=== PATIENT | female | born 1995 | race Caucasian/White ===

== ENCOUNTER → 2016-12-27 | Outpatient (REF) | payer BC ==
[~2016-12-27] MED LIST: ACET500T37 PO; IBUP600T26 PO; ZONI100C2 PO
== END ==
LOC: M LAB REF 16:21
PROVIDERS: ATTEND Surgery
DX: N39.0 Urinary tract infection, site not specified (principal)

== ENCOUNTER → 2017-01-01 | Outpatient (CLI) | payer BC ==
[2017-01-03 14:18] LABS: CONTROL LINE INT CTR LINE PRESENT; HIV SCRN NEGATIVE (NEGATIVE); HIV SCRN1 NEGATIVE (NEGATIVE)
== END ==
LOC: M WUC 11:28
PROVIDERS: ATTEND Nurse Practitioner Women's Health
DX: Z11.3 Encounter for screening for infections with a predominantly sexual mode of transmission (principal)

== ENCOUNTER → 2017-01-10 | Outpatient (REF) | payer BC | LOC: M LAB REF 16:36 | PROVIDERS: ATTEND Physician Assistant | DX: J06.9 Acute upper respiratory infection, unspecified (principal) ==

== ENCOUNTER → 2017-05-16 | Outpatient (CLI) | payer BC ==
[~2017-05-16] MED LIST changes: +LIDOCAINE 1% MDV 20ML VIAL As Ordered ONE
--- NOTE | 2017-05-17 17:07 | REP ---
RIGHT SUBMANDIBULAR LYMPH NODE FINE NEEDLE ASPIRATION: The procedure was performed by Sunita PARISI under the direct supervision of Dr. Maya. CONSENT: The procedure with its potential risks and complications were discussed with the patient. These include but are not limited to bleeding, infection and damage to adjacent structures. Verbal and written consent were obtained from the patient. TIME OUT: A procedural time out was observed to confirm the correct patient, procedure and site, all within the room agreed. LOCALIZATION: The patient is supine. The target node was identified by ultrasound. A skin site was marked and the skin was prepped and draped in the usual sterile fashion. PROCEDURE: 9 mL of Xylocaine were administered to the area of interest, six 25- gauge needles were passed through the lymph node for fine needle samples to be obtained. Three of these samples were placed in Cytolyt and three of the samples were placed in flow cytometry tube. IMPRESSION: Ultrasound guided fine needle aspiration of the right submandibular lymph node yielding 6 samples. The patient tolerated the procedure well and there were no immediate complications. The patient was then discharged home. Reviewed by AILIN Patton 05/18/2017 02:35 P
== END ==
LOC: M RADPRO 12:19
PROVIDERS: ATTEND Surgery
DX: R59.9 Enlarged lymph nodes, unspecified (principal); F17.210 Nicotine dependence, cigarettes, uncomplicated; Z79.899 Other long term (current) drug therapy

== ENCOUNTER 2017-07-13 07:04 | Emergency (ER) | payer BC ==
[~2017-07-13] VITALS: Ht 152.4 cm; Wt 103.6 kg
[~2017-07-13 07:04] MED LIST changes: +ACET-683 PO; -ACET500T37 PO; +IBUP-1022 PO; -IBUP600T26 PO; -LIDOCAINE 1% MDV 20ML VIAL As Ordered ONE
[2017-07-13] MEDS ORDERED: METF500T13 PO (07:12)
[2017-07-13] MEDS ORDERED: PROAAER10 INH (07:12)
[2017-07-13] MEDS ORDERED: TOPA1TAB PO (07:12)
[2017-07-13] MEDS ORDERED: diphenhydrAMINE INJ 50MG/ML VIAL (J1200) IV STA (07:22)
[2017-07-13] MEDS ORDERED: NS 1,000 ML IV ONE (07:30)
[2017-07-13] MEDS ORDERED: METOCLOPRAMIDE INJ 10MG/2ML VIAL (J2765) IV ONE (07:30)
[2017-07-13] MEDS ORDERED: IPRATROPIUM 0.5MG/ALBUTEROL 2.5MG INH SOL UD 3ML (DUONEB)(J7620) NEB ONE (07:30)
[2017-07-13 07:59] LABS: BASO % 0.3 % (0.0-1.0); EOS # 0.4 K/mm3 (0.0-0.50); EOS % 2.2 % (0.0-3.0); LARGE UNSTAINED CELL # 0.1 K/mm3 (0.0-0.4); LARGE UNSTAINED CELL % 0.8 % (0.0-4.0); LYMPH % 18.2 % (24.0-44.0); MEAN CORPUSCULAR HEMOGLOBIN 26.8 pg (27.0-33.0); MEAN CORPUSCULAR HGB CONC 31.7 g/dl (32.0-36.5); MEAN CORPUSCULAR VOLUME 84.5 fl (80.0-96.0); MONO # 0.5 K/mm3 (0.0-0.8); MONO % 3.1 % (0.0-5.0); NEUTROPHILS % 75.4 % (36.0-66.0); PLATELET COUNT, AUTOMATED 395 k/mm3 (150-450); RED CELL DISTRIBUTION WIDTH 13.9 % (11.5-14.5); WHITE BLOOD COUNT 15.9 K/mm3 (4.0-10.0)
[2017-07-13 08:15] LABS: CONTROL LINE HCG INT CTR LINE PRESENT
[2017-07-13 08:22] LABS: ALBUMIN 3.6 GM/DL (3.2-5.2); ALBUMIN/GLOBULIN RATIO 0.92 (1.00-1.93); ALKALINE PHOSPHATASE 98 U/L (45-117); ALT/SGPT 31 U/L (12-78); ANION GAP 8 MEQ/L (8-16); AST/SGOT 12 U/L (15-37); BILIRUBIN,DIRECT < 0.1 MG/DL (0.0-0.2); BILIRUBIN,TOTAL 0.2 MG/DL (0.2-1.0); BLOOD UREA NITROGEN 10 MG/DL (7-18); CALCIUM LEVEL 9.4 MG/DL (8.5-10.1); CARBON DIOXIDE LEVEL 27 MEQ/L (21-32); CHLORIDE LEVEL 109 MEQ/L (98-107); CREATININE FOR GFR 0.59 MG/DL (0.55-1.02); GLOMERULAR FILTRATION RATE > 60.0 (>60); GLUCOSE, FASTING 97 MG/DL (70-105); POTASSIUM SERUM 4.4 MEQ/L (3.5-5.1); SODIUM LEVEL 144 MEQ/L (136-145); TOTAL PROTEIN 7.5 GM/DL (6.4-8.2)
[2017-07-13 08:30] LABS: METHADONE URINE NEGATIVE (NEGATIVE)
[2017-07-13 08:33] LABS: MICROSCOPIC INDICATED? NO (NO)
--- NOTE | 2017-07-13 08:38 | REP ---
Head CT without contrast: History: Altered mental status. Comparison study: August 13, 2015 CT findings: Bone window settings demonstrate an intact bony calvarium. There is no evidence of skull fracture or incidental bony calvarial lesion. The visualized paranasal sinuses appear clear. No intraorbital abnormality is seen. On soft tissue window setting images; the lateral, third, and fourth ventricles are normal in size and position. Sher-white differentiation pattern is normal above and below the tentorium. There are is no evidence of intracranial hemorrhage. No mass, edema, infarction, or midline shift is seen. No extra-axial fluid collection is appreciated. Impression: Negative noncontrast head CT. Signed by Pedrito Maya MD 07/13/2017 08:30 A
--- NOTE | 2017-07-13 09:14 | REP ---
CHEST, TWO VIEWS: There is no evidence of acute infiltrate. No pleural effusion is seen. The heart is normal in size. The mediastinal silhouette is unremarkable. The visualized osseous structures are intact. IMPRESSION: No acute pulmonary disease. Signed by Renzo Sher MD 07/13/2017 04:39 P
[2017-07-13] MEDS ORDERED: KETOROLAC 30 MG/ML VIAL (J1885) IV ONE (09:15)
[2017-07-13] MEDS ORDERED: REGL10TA6 PO (10:32)
[2017-07-13 10:42] VITALS: BP 120/69
== END 2017-07-13 10:43 | disposition home or self-care (01) ==
LOC: M ED 07:04
DX: R51 Headache (principal); R06.02 Shortness of breath; J45.909 Unspecified asthma, uncomplicated; F17.200 Nicotine dependence, unspecified, uncomplicated; Z79.899 Other long term (current) drug therapy
CPT/HCPCS: 70450; 71020; 80048; 80076; 80307; 81001; 82550; 82553; 84443; 84703; 85025; 94640; 96361; 96374; 96375; 99283; G0480; J1200; J1885; J2765

== ENCOUNTER → 2017-09-01 | Outpatient (REF) | payer BC ==
[~2017-09-01] MED LIST changes: +METF500T13 PO; +PROAAER10 INH; +REGL10TA6 PO; +TOPA1TAB PO
== END ==
LOC: M LAB REF 16:24
PROVIDERS: ATTEND Nurse Practitioner Women's Health
DX: Z11.3 Encounter for screening for infections with a predominantly sexual mode of transmission (principal)

== ENCOUNTER → 2018-06-08 | Outpatient (CLI) | payer BC ==
[2018-06-08 09:07] LABS: HCG, SERUM QUANTITATIVE < 1.0 MIU/ML
== END ==
LOC: M LAB 08:00
DX: N91.2 Amenorrhea, unspecified (principal)
CPT/HCPCS: 84702

== ENCOUNTER → 2018-06-22 | Outpatient (CLI) | payer BC ==
[~2018-06-22] MED LIST changes: -ACET-683 PO; -IBUP-1022 PO; +ISOVUE-370 76% 100ML VIAL (Q9967) As Ordered; -METF500T13 PO; -PROAAER10 INH; -REGL10TA6 PO; -TOPA1TAB PO; -ZONI100C2 PO
== END ==
LOC: M RADPRO 12:41
DX: N97.0 Female infertility associated with anovulation (principal)
CPT/HCPCS: 58340

== ENCOUNTER → 2018-07-15 | Outpatient (CLI) | payer BC ==
[2018-07-15 16:39] LABS: BASO # 0.1 10^3/uL (0.0-0.2); BASO % 0.4 % (0.0-1.0); EOS # 0.4 10^3/uL (0.0-0.50); HEMATOCRIT 41.2 % (36.0-47.0); HEMOGLOBIN 12.2 g/dl (12.0-15.5); IMMATURE GRANULOCYTE # 0.1 10^3/uL (0-0); IMMATURE GRANULOCYTE % 0.8 % (0-3.0); LYMPH # 3.6 10^3/uL (1.5-6.5); LYMPH % 24.8 % (24.0-44.0); MEAN CORPUSCULAR HEMOGLOBIN 25.2 pg (27.0-33.0); MEAN CORPUSCULAR HGB CONC 29.6 g/dl (32.0-36.5); MEAN CORPUSCULAR VOLUME 84.9 fl (80.0-96.0); MONO # 0.6 10^3/uL (0.0-0.8); MONO % 4.2 % (0.0-5.0); NEUTROPHILS # 9.6 10^3/uL (1.8-7.7); NEUTROPHILS % 66.8 % (36.0-66.0); PLATELET COUNT, AUTOMATED 458 10^3/uL (150-450); RED BLOOD COUNT 4.85 10^6/uL (4.00-5.40); RED CELL DISTRIBUTION WIDTH 13.4 % (11.5-14.5); WHITE BLOOD COUNT 14.3 10^3/uL (4.0-10.0)
[2018-07-15 17:09] LABS: ESTIMATED AVERAGE GLUCOSE 105 MG/DL (60-110); HEMOGLOBIN A1c 5.3 %
[2018-07-15 17:20] LABS: ALBUMIN 3.3 GM/DL (3.2-5.2); ALBUMIN/GLOBULIN RATIO 0.92 (1.00-1.93); ALKALINE PHOSPHATASE 95 U/L (45-117); ALT/SGPT 39 U/L (12-78); ANION GAP 6 MEQ/L (8-16); AST/SGOT 17 U/L (7-37); BILIRUBIN,TOTAL 0.3 MG/DL (0.2-1.0); BLOOD UREA NITROGEN 11 MG/DL (7-18); CALCIUM LEVEL 9.1 MG/DL (8.5-10.1); CARBON DIOXIDE LEVEL 29 MEQ/L (21-32); CHLORIDE LEVEL 107 MEQ/L (98-107); CHOLESTEROL LEVEL 189 MG/DL (<200); FREE T4 1.03 NG/DL (0.76-1.46); GLOMERULAR FILTRATION RATE > 60.0 (>60); GLUCOSE, FASTING 73 MG/DL (70-100); HDL CHOLESTEROL 35 MG/DL (>40); NON-HDL-C 154 MG/DL; POTASSIUM SERUM 4.7 MEQ/L (3.5-5.1); SODIUM LEVEL 142 MEQ/L (136-145); THYROID STIMULATING HORMONE 0.818 uIU/ML (0.358-3.740); TOTAL PROTEIN 6.9 GM/DL (6.4-8.2); TRIGLYCERIDES LEVEL 170 MG/DL (<150)
== END ==
LOC: M WUC 13:42
DX: E78.2 Mixed hyperlipidemia (principal); E11.65 Type 2 diabetes mellitus with hyperglycemia; E03.9 Hypothyroidism, unspecified
CPT/HCPCS: 84443

== ENCOUNTER 2018-11-07 23:06 | Emergency (ER) | payer BC ==
[2018-11-08] MEDS: KETOROLAC 30 MG/ML VIAL (J1885) IV (00:35)
[2018-11-08 00:47] LABS: HEMATOCRIT 41.1 % (36.0-47.0); HEMOGLOBIN 12.6 g/dl (12.0-15.5); MEAN CORPUSCULAR HEMOGLOBIN 25.2 pg (27.0-33.0); MEAN CORPUSCULAR HGB CONC 30.7 g/dl (32.0-36.5); MEAN CORPUSCULAR VOLUME 82.2 fl (80.0-96.0); PLATELET COUNT, AUTOMATED 412 10^3/uL (150-450); RED CELL DISTRIBUTION WIDTH 15.1 % (11.5-14.5); WHITE BLOOD COUNT 17.4 10^3/uL (4.0-10.0)
[2018-11-08 00:48] LABS: ADD MANUAL DIFFER YES; DIFF SLIDE NUMBER 72; POSITIVE DIFF POS FLAG
[2018-11-08 01:06] LABS: CONTROL LINE HCG INT CTR LINE PRESENT; HCG, SERUM QUALITATIVE NEGATIVE (NEGATIVE)
[2018-11-08 01:07] LABS: ANION GAP 8 MEQ/L (8-16); BLOOD UREA NITROGEN 13 MG/DL (7-18); CALCIUM LEVEL 8.6 MG/DL (8.5-10.1); CARBON DIOXIDE LEVEL 26 MEQ/L (21-32); CHLORIDE LEVEL 109 MEQ/L (98-107); CK-MB VALUE MASS < 1.0 NG/ML (<3.6); CPK CREATINE PHOSPHOKINASE 57 U/L (26-192); CREATININE FOR GFR 0.53 MG/DL (0.55-1.30); FREE T4 1.04 NG/DL (0.76-1.46); GLOMERULAR FILTRATION RATE > 60.0 (>60); GLUCOSE, FASTING 89 MG/DL (70-100); MB/CK RELATIVE INDEX 1.75 (< OR =4); POTASSIUM SERUM 4.2 MEQ/L (3.5-5.1); SODIUM LEVEL 143 MEQ/L (136-145); TROPONIN I < 0.02 NG/ML (< 0.10)
[2018-11-08 02:03] LABS: ATYPICAL LYMPH 2 % (0-5); EOSINOPHILS 3 % (0-5); LYMPHOCYTES 25 % (16-52); MONOCYTES 3 % (0-8); NEUTROPHILS 67 % (35-75); PLATELET ESTIMATE NORMAL (NORMAL)
[2018-11-08 02:04] LABS: ANISOCYTOSIS 1+
[2018-11-08 02:28] LABS: CONTROL LINE MONO INT CTR LINE PRESENT; MONO SCRN NEGATIVE (NEGATIVE)
== END 2018-11-08 03:18 | disposition home or self-care (01) ==
LOC: M ED 23:06
DX: R07.89 Other chest pain (principal); Z72.0 Tobacco use; Z82.49 Family history of ischemic heart disease and other diseases of the circulatory system; Z79.899 Other long term (current) drug therapy
CPT/HCPCS: J1885

== ENCOUNTER → 2019-02-12 | Outpatient (REF) | payer BC ==
[~2019-02-12] MED LIST changes: +ACET-683 PO; +IBUP-1022 PO; -ISOVUE-370 76% 100ML VIAL (Q9967) As Ordered; +METF500T13 PO; +NAPR-50 PO; +PROAAER10 INH; +REGL10TA6 PO; +TOPA1TAB PO; +ZONI100C2 PO
[2019-02-12 11:34] LABS: BASO # 0.1 10^3/uL (0.0-0.2); BASO % 0.4 % (0.0-1.0); EOS # 0.4 10^3/uL (0.0-0.50); EOS % 2.7 % (0.0-3.0); HEMATOCRIT 41.3 % (36.0-47.0); HEMOGLOBIN 12.4 g/dl (12.0-15.5); LYMPH # 3.7 10^3/uL (1.5-6.5); LYMPH % 28.7 % (24.0-44.0); MEAN CORPUSCULAR HEMOGLOBIN 25.5 pg (27.0-33.0); MEAN CORPUSCULAR VOLUME 84.8 fl (80.0-96.0); MONO # 0.6 10^3/uL (0.0-0.8); NEUTROPHILS % 62.6 % (36.0-66.0); PLATELET COUNT, AUTOMATED 415 10^3/uL (150-450); RED BLOOD COUNT 4.87 10^6/uL (4.00-5.40); WHITE BLOOD COUNT 12.9 10^3/uL (4.0-10.0)
[2019-02-12 11:59] LABS: ERYTHROCYTE SEDIMENTATION RATE 22 mm/hr (0-20)
[2019-02-12 12:29] LABS: ALBUMIN 3.5 GM/DL (3.2-5.2); ALT/SGPT 31 U/L (12-78); BILIRUBIN,TOTAL 0.3 MG/DL (0.2-1.0); BLOOD UREA NITROGEN 15 MG/DL (7-18); CALCIUM LEVEL 8.7 MG/DL (8.5-10.1); CARBON DIOXIDE LEVEL 24 MEQ/L (21-32); CHLORIDE LEVEL 110 MEQ/L (98-107); CREATININE FOR GFR 0.56 MG/DL (0.55-1.30); GLOMERULAR FILTRATION RATE > 60.0 (>60); GLUCOSE, FASTING 78 MG/DL (70-100); IMMUNOGLOBULIN E 95.6 IU/ML (<100); IMMUNOGLOBULIN G 856 MG/DL (681-1648); IMMUNOGLOBULIN M 98.5 MG/DL (40-230); LDH LACTATE DEHYDROGENASE 164 U/L (84-246); POTASSIUM SERUM 4.6 MEQ/L (3.5-5.1); RHEUMATOID FACTOR QUANT < 10.0 IU/ML (<15.0); SODIUM LEVEL 141 MEQ/L (136-145); TOTAL PROTEIN 6.7 GM/DL (6.4-8.2)
[2019-02-12 15:38] LABS: HIV 1&2 SCREEN CENTAUR NEGATIVE (NEGATIVE)
[2019-02-15 00:09] LABS: ANA (HEP2) Negative (.); CYCLIC CITRULLINATED PEPTIDE 5 units (0-19)
== END ==
LOC: M SFHCPLAZ 10:35
PROVIDERS: ATTEND Internal Medicine Infectious Disease
DX: R59.0 Localized enlarged lymph nodes (principal); D72.829 Elevated white blood cell count, unspecified

== ENCOUNTER → 2019-03-02 | Outpatient (CLI) | payer BC ==
[~2019-03-02] MED LIST changes: +ISOVUE-370 76% 100ML VIAL (Q9967) As Ordered ONE; -NAPR-50 PO; +NAPR-837 PO
--- NOTE | 2019-03-02 11:01 | REP ---
SOFT-TISSUE NECK CT STUDY WITH IV CONTRAST: HISTORY: Abnormal ultrasound. Cervical adenopathy. Recurrent infections. Comparison CT study is from April 16, 2015. Comparison sonography February 20, 2019. CT CONTRAST DOSE: 75 mL of intravenous Isovue 370. CT FINDINGS: No intraorbital or intracranial abnormality is seen. The visualized paranasal sinuses are clear. No bony destructive lesion is appreciated. The lung apices are clear. Thyroid lobes are normal and symmetric. Submandibular and parotid glands are symmetric and unremarkable. There are shoddy anterior and posterior cervical lymph nodes present bilaterally. The largest on the left may is an anterior node at the angle of the mandible measuring 9 mm in short axis dimension. This is slightly smaller than on the [address] The largest lymph node on the right is in a similar location and measures 9 mm in short axis dimension. It too is a little smaller than the prior study. No cyst or mass is seen. No definitely enlarged lymph node. IMPRESSION: Scattered normal-sized lymph nodes noted bilaterally. Slightly smaller than on April 16, 2015. No neck mass or definite adenopathy seen. Electronically Signed by Pedrito Maya MD 03/02/2019 07:58 P
== END ==
LOC: M RAD 08:36
PROVIDERS: ATTEND Internal Medicine Infectious Disease
DX: R59.0 Localized enlarged lymph nodes (principal)
CPT/HCPCS: 70491; Q9967

== ENCOUNTER 2019-03-27 19:35 | Emergency (ER) | payer BC ==
[~2019-03-27] VITALS: Ht 152.4 cm; Wt 107.3 kg
[~2019-03-27 19:35] MED LIST changes: -ISOVUE-370 76% 100ML VIAL (Q9967) As Ordered ONE
--- NOTE | 2019-03-27 20:01 | ECGEPIP ---
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
[2019-03-27 20:15] LABS: BASO # 0.1 10^3/uL (0.0-0.2); BASO % 0.3 % (0.0-1.0); EOS # 0.5 10^3/uL (0.0-0.50); EOS % 2.7 % (0.0-3.0); HEMATOCRIT 38.1 % (36.0-47.0); HEMOGLOBIN 11.8 g/dl (12.0-15.5); LYMPH % 23.8 % (24.0-44.0); MEAN CORPUSCULAR HEMOGLOBIN 25.5 pg (27.0-33.0); MEAN CORPUSCULAR VOLUME 82.5 fl (80.0-96.0); MONO # 0.5 10^3/uL (0.0-0.8); NEUTROPHILS # 11.6 10^3/uL (1.8-7.7); NEUTROPHILS % 69.4 % (36.0-66.0); PLATELET COUNT, AUTOMATED 383 10^3/uL (150-450); RED BLOOD COUNT 4.62 10^6/uL (4.00-5.40); WHITE BLOOD COUNT 16.7 10^3/uL (4.0-10.0)
[2019-03-27 20:48] LABS: BLOOD UREA NITROGEN 14 MG/DL (7-18); CALCIUM LEVEL 8.8 MG/DL (8.5-10.1); CARBON DIOXIDE LEVEL 28 MEQ/L (21-32); CHLORIDE LEVEL 108 MEQ/L (98-107); CK-MB VALUE MASS < 1.0 NG/ML (<3.6); CPK CREATINE PHOSPHOKINASE 66 U/L (26-192); CREATININE FOR GFR 0.66 MG/DL (0.55-1.30); FREE T4 1.05 NG/DL (0.76-1.46); GLOMERULAR FILTRATION RATE > 60.0 (>60); GLUCOSE, FASTING 117 MG/DL (70-100); MB/CK RELATIVE INDEX 1.52 (< OR =4); POTASSIUM SERUM 4.1 MEQ/L (3.5-5.1); SODIUM LEVEL 141 MEQ/L (136-145); TROPONIN I < 0.02 NG/ML (< 0.10)
[2019-03-27 20:50] LABS: HCG, SERUM QUALITATIVE NEGATIVE (NEGATIVE)
[2019-03-27] MEDS ORDERED: methylPREDNISolone INJ 125 MG/2 ML VIAL (J2930) IV ONE (22:00)
[2019-03-27] MEDS ORDERED: AZITHROMYCIN 250 MG TAB PO ONE (22:00)
[2019-03-27] MEDS ORDERED: ZITH500T PO (22:03)
[2019-03-27] MEDS ORDERED: MEDR4PAK PO (22:03)
[2019-03-27] MEDS ORDERED: ALBU17IN2 INH (22:03)
[2019-03-27 22:21] VITALS: BP 139/65
--- NOTE | 2019-03-28 00:40 | REP ---
Clinical: Acute chest pain . Comparison: 11/08/2018 . Technique: PA and lateral. Findings: The mediastinum and cardiac silhouette are normal. The lung pierson are clear and without acute consolidation, effusion, or pneumothorax. The skeletal structures are intact and normal. Impression: 1. No acute cardiopulmonary process. Electronically Signed by Chito Baptiste MD 03/28/2019 12:31 A
== END 2019-03-27 22:22 | disposition home or self-care (01) ==
LOC: M ED 19:36
DX: J45.998 Other asthma (principal); E28.2 Polycystic ovarian syndrome; Z79.84 Long term (current) use of oral hypoglycemic drugs
CPT/HCPCS: 71046; 80048; 82550; 82553; 84439; 84443; 84484; 84703; 85025; 85379; 93005; 96374; 99284; J2930

== ENCOUNTER → 2019-04-29 | Outpatient (CLI) | payer BC ==
[~2019-04-29] MED LIST changes: +ALBU17IN2 INH; +CEFU50TA PO; +MEDR4PAK PO; +VITA500045 PO; +ZITH500T PO
[2019-04-29 17:56] LABS: BASO # 0.1 10^3/uL (0.0-0.2); BASO % 0.4 % (0.0-1.0); EOS # 0.3 10^3/uL (0.0-0.50); EOS % 2.4 % (0.0-3.0); HEMATOCRIT 40.8 % (36.0-47.0); HEMOGLOBIN 12.3 g/dl (12.0-15.5); LYMPH # 4.4 10^3/uL (1.5-6.5); LYMPH % 31.1 % (24.0-44.0); MEAN CORPUSCULAR HEMOGLOBIN 25.6 pg (27.0-33.0); MEAN CORPUSCULAR HGB CONC 30.1 g/dl (32.0-36.5); MEAN CORPUSCULAR VOLUME 84.8 fl (80.0-96.0); MONO # 0.6 10^3/uL (0.0-0.8); MONO % 4.3 % (0.0-5.0); NEUTROPHILS # 8.7 10^3/uL (1.8-7.7); NEUTROPHILS % 61.3 % (36.0-66.0); PLATELET COUNT, AUTOMATED 415 10^3/uL (150-450); RED BLOOD COUNT 4.81 10^6/uL (4.00-5.40); WHITE BLOOD COUNT 14.1 10^3/uL (4.0-10.0)
[2019-04-29 18:04] LABS: ALBUMIN 3.4 GM/DL (3.2-5.2); ALT/SGPT 36 U/L (12-78); BILIRUBIN,TOTAL 0.1 MG/DL (0.2-1.0); BLOOD UREA NITROGEN 12 MG/DL (7-18); CALCIUM LEVEL 8.9 MG/DL (8.5-10.1); CARBON DIOXIDE LEVEL 28 MEQ/L (21-32); CHLORIDE LEVEL 107 MEQ/L (98-107); CHOLESTEROL LEVEL 167 MG/DL (<200); CREATININE FOR GFR 0.69 MG/DL (0.55-1.30); GLOMERULAR FILTRATION RATE > 60.0 (>60); GLUCOSE, FASTING 90 MG/DL (70-100); HDL CHOLESTEROL 33 MG/DL (>40); LDL CHOLESTEROL 113 MG/DL (<100); NON-HDL-C 134 MG/DL; POTASSIUM SERUM 4.8 MEQ/L (3.5-5.1); SODIUM LEVEL 140 MEQ/L (136-145); TOTAL PROTEIN 6.5 GM/DL (6.4-8.2); TRIGLYCERIDES LEVEL 107 MG/DL (<150)
[2019-04-29 18:12] LABS: HEMOGLOBIN A1c 5.8 %
[2019-04-30 11:09] LABS: TOTAL 25(OH) VITAMIN D 18.3 NG/ML (30.0-100.0)
== END ==
LOC: M WUC 09:59
PROVIDERS: ATTEND Nurse Practitioner Adult Health
DX: D72.829 Elevated white blood cell count, unspecified (principal); R10.811 Right upper quadrant abdominal tenderness; F41.9 Anxiety disorder, unspecified; E28.2 Polycystic ovarian syndrome; E55.9 Vitamin D deficiency, unspecified; Z79.899 Other long term (current) drug therapy; E78.00 Pure hypercholesterolemia, unspecified

== ENCOUNTER 2019-05-31 22:39 | Emergency (ER) | payer BC ==
[~2019-05-31] VITALS: Ht 152.4 cm; Wt 106.1 kg
[2019-05-31 22:40] VITALS: BP 135/94
[2019-05-31] MEDS ORDERED: KEFL500C17 PO (23:44)
[2019-05-31] MEDS ORDERED: CEPHALEXIN 500 MG CAP PO ONE (23:45)
== END 2019-06-01 00:14 | disposition home or self-care (01) ==
LOC: M ED 22:39
DX: H60.01 Abscess of right external ear (principal); Z72.0 Tobacco use; Z79.899 Other long term (current) drug therapy

== ENCOUNTER → 2019-08-01 | Outpatient (CLI) | payer BC ==
[~2019-08-01] MED LIST changes: -ALBU17IN2 INH; +KEFL500C17 PO; +PROV108A INH
--- NOTE | 2019-08-01 11:04 | REP ---
Chest x-ray: Two views. History: Shortness of breath . Comparison study: March 27, 2019 . Findings: The lungs are well inflated and free of infiltrate. The pleural angles are sharp. The heart size is normal. Pulmonary vasculature is not increased. No significant bony abnormality is seen. Impression: Negative chest x-ray. Electronically Signed by Pedrito Maya MD 08/01/2019 10:56 A
[2019-08-01 12:37] LABS: BASO # 0.1 10^3/uL (0.0-0.2); BASO % 0.4 % (0.0-1.0); EOS # 0.4 10^3/uL (0.0-0.5); EOS % 2.9 % (0.0-3.0); HEMATOCRIT 39.4 % (36.0-47.0); LYMPH # 4.4 10^3/uL (1.5-5.0); LYMPH % 31.9 % (24.0-44.0); MEAN CORPUSCULAR HGB CONC 30.5 g/dl (32.0-36.5); MEAN CORPUSCULAR VOLUME 85.3 fl (80.0-96.0); MONO # 0.7 10^3/uL (0.0-0.8); MONO % 4.8 % (0.0-5.0); NEUTROPHILS # 8.1 10^3/uL (1.5-8.5); NEUTROPHILS % 59.4 % (36.0-66.0); PLATELET COUNT, AUTOMATED 409 10^3/uL (150-450); RED BLOOD COUNT 4.62 10^6/uL (4.00-5.40); WHITE BLOOD COUNT 13.7 10^3/uL (4.0-10.0)
[2019-08-01 12:53] LABS: ALT/SGPT 36 U/L (12-78); BILIRUBIN,TOTAL 0.3 MG/DL (0.2-1.0); BLOOD UREA NITROGEN 15 MG/DL (7-18); CALCIUM LEVEL 8.7 MG/DL (8.5-10.1); CARBON DIOXIDE LEVEL 26 MEQ/L (21-32); CHLORIDE LEVEL 109 MEQ/L (98-107); CHOLESTEROL LEVEL 187 MG/DL (<200); CREATININE FOR GFR 0.66 MG/DL (0.55-1.30); GLOMERULAR FILTRATION RATE > 60.0 (>60); GLUCOSE, FASTING 81 MG/DL (70-100); HDL CHOLESTEROL 34 MG/DL (>40); LDL CHOLESTEROL 131 MG/DL (<100); NON-HDL-C 153 MG/DL; POTASSIUM SERUM 4.6 MEQ/L (3.5-5.1); SODIUM LEVEL 143 MEQ/L (136-145); TOTAL 25(OH) VITAMIN D 25.5 NG/ML (30.0-100.0); TOTAL PROTEIN 6.2 GM/DL (6.4-8.2); TRIGLYCERIDES LEVEL 109 MG/DL (<150)
[2019-08-01 12:55] LABS: HEMOGLOBIN A1c 5.7 %
== END ==
LOC: M WUC 08:46
PROVIDERS: ATTEND Nurse Practitioner Adult Health
DX: R06.02 Shortness of breath (principal)

== ENCOUNTER → 2019-09-24 | Outpatient (REF) | payer BC ==
[2019-09-24 20:35] LABS: CHLAMYDIA DNA AMPLIFICATION NEGATIVE (NEGATIVE); GC DNA AMPLIFICATION NEGATIVE (NEGATIVE)
== END ==
LOC: M LAB REF 17:46
PROVIDERS: ATTEND Obstetrics & Gynecology
DX: Z12.4 Encounter for screening for malignant neoplasm of cervix (principal)
CPT/HCPCS: 87661; G0123

== ENCOUNTER → 2019-12-27 | Outpatient (REF) | payer BC ==
[~2019-12-27] MED LIST changes: +ZONI100C17 PO; -ZONI100C2 PO
[2019-12-27 12:17] LABS: INFLUENZA A AMPLIFICATION NEGATIVE (NEGATIVE); INFLUENZA B AMPLIFICATION NEGATIVE (NEGATIVE)
== END ==
LOC: M LAB REF 11:21
PROVIDERS: ATTEND Physician Assistant
DX: J11.1 Influenza due to unidentified influenza virus with other respiratory manifestations (principal)

== ENCOUNTER → 2020-05-13 | Outpatient (CLI) | payer OTHER ==
[~2020-05-13] MED LIST changes: +METF-839 PO; +SING10TA32 PO; +SYMB16INH INH
--- NOTE | 2020-05-13 14:22 | PFTRPT ---
Height: 60.00 Inches Weight: 220.00 Lbs BSA: 1.94 Diagnosis: R06.00 DATE OF PROCEDURE: 05/13/2020 ORDERED BY: CHARLOTTE Hatfield Spirometry: Pre and post bronchodilator study of excellent technical quality. Forced vital capacity normal. FEV1 is out of proportion. Obstructive index is, therefore, reduced. Flow Volume Loop: Expiratory limb of the flow volume loop suggests airflow limitation. Favorable bronchodilator response identified. Lung Volumes: Total lung capacity borderline elevated. Residual volume does suggest a degree of air trapping. Diffusing Capacity: Diffusing capacity normal. Hemoglobin: Hemoglobin acceptable at 12.4. Airway Mechanics: Airway resistance elevated with concomitant decrease in airway conductance. IMPRESSION: Mild obstructive ventilatory impairment with bronchodilator response. Underlying air trapping. Please correlate clinically. MTDD
== END ==
LOC: M CARPUL 13:41
PROVIDERS: ATTEND Physician Assistant
DX: R06.00 Dyspnea, unspecified (principal)

== ENCOUNTER → 2020-05-16 | Outpatient (CLI) | payer OTHER ==
--- NOTE | 2020-05-16 08:48 | REP ---
Chest x-ray: Two views. History: Dyspnea . Comparison study: August 01, 2019 . Findings: The lungs are well inflated and free of infiltrate. The pleural angles are sharp. The heart size is normal. Pulmonary vasculature is not increased. No significant bony abnormality is seen. Impression: Negative chest x-ray. Electronically Signed by Pedrito Maya MD 05/16/2020 08:40 A
== END ==
LOC: M RAD 08:20
PROVIDERS: ATTEND Physician Assistant
DX: R06.00 Dyspnea, unspecified (principal)

== ENCOUNTER → 2020-06-30 | Outpatient (CLI) | payer OTHER ==
[~2020-06-30] MED LIST changes: +E-Z-GAS II EFFERVESCENT PACKET (SODIUM BICARB./CITRIC ACID/SIMETHICONE) As Ordered ONE; +E-Z-HD 98% w/w 340GM SUSP BTL As Ordered ONE; +E-Z-PAQUE 96% w/w SUSP 176GM BTL As Ordered ONE
--- NOTE | 2020-08-15 07:19 | REP ---
ESOPHAGRAM STUDY: This procedure was performed by AILIN Jenkins under the direct supervision of Dr. Sher. Images were reviewed with Dr. Sher prior to dictation. FINDINGS: A single PA chest x-ray is submitted as a grounding engineer film. The superior mediastinal structures are midline. The heart size is within normal limits. The lungs are clear. Liquid barium and gas-producing granules were given in the erect position as well as liquid barium in the prone oblique position in order to perform a double contrast esophagram examination. The oral and pharyngeal stages of deglutition were unremarkable. Esophageal transport is prompt and efficient and there is no evidence of esophagitis, stricture, mucosal ring or hiatal hernia. There was no gastroesophageal reflux demonstrated during this exam. IMPRESSION: Unremarkable esophagram. 0.2 minutes of fluoroscopy time was utilized for this procedure. [facility]
== END ==
LOC: M RAD 08:00
PROVIDERS: ATTEND Otolaryngology
DX: J32.4 Chronic pansinusitis (principal); K21.9 Gastro-esophageal reflux disease without esophagitis

== ENCOUNTER 2020-07-23 19:30 | Emergency (ER) | payer OTHER ==
[~2020-07-23] VITALS: Ht 152.4 cm; Wt 102.4 kg
[~2020-07-23 19:30] MED LIST changes: -E-Z-GAS II EFFERVESCENT PACKET (SODIUM BICARB./CITRIC ACID/SIMETHICONE) As Ordered ONE; -E-Z-HD 98% w/w 340GM SUSP BTL As Ordered ONE; -E-Z-PAQUE 96% w/w SUSP 176GM BTL As Ordered ONE
[2020-07-23 19:31] VITALS: BP 135/76
[2020-07-23] MEDS ORDERED: METOCLOPRAMIDE INJ 10MG/2ML VIAL (J2765 PER 1) IV ONE (20:45)
[2020-07-23] MEDS ORDERED: DICYCLOMINE 10 MG CAP PO ONE (20:45)
[2020-07-23] MEDS ORDERED: KETOROLAC 30 MG/ML 1ML VIAL IV ONE (20:45)
[2020-07-23] MEDS ORDERED: NS 1,000 ML IV ONE (20:45)
[2020-07-23 21:00] LABS: BASO # 0.1 10^3/uL (0.0-0.2); BASO % 0.4 % (0.0-1.0); EOS # 0.4 10^3/uL (0.0-0.5); EOS % 2.3 % (0.0-3.0); HEMATOCRIT 44.1 % (36.0-47.0); HEMOGLOBIN 13.5 g/dl (12.0-15.5); LYMPH # 4.3 10^3/uL (1.5-5.0); LYMPH % 25.9 % (24.0-44.0); MEAN CORPUSCULAR HEMOGLOBIN 25.9 pg (27.0-33.0); MEAN CORPUSCULAR HGB CONC 30.6 g/dl (32.0-36.5); MEAN CORPUSCULAR VOLUME 84.5 fl (80.0-96.0); MONO # 0.6 10^3/uL (0.0-0.8); MONO % 3.5 % (0.0-5.0); NEUTROPHILS # 11.1 10^3/uL (1.5-8.5); NEUTROPHILS % 67.6 % (36.0-66.0); PLATELET COUNT, AUTOMATED 398 10^3/uL (150-450); RED BLOOD COUNT 5.22 10^6/uL (4.00-5.40); WHITE BLOOD COUNT 16.4 10^3/uL (4.0-10.0)
[2020-07-23 21:31] LABS: HCG, SERUM QUALITATIVE NEGATIVE (NEGATIVE)
[2020-07-23 21:40] LABS: ALBUMIN 3.6 GM/DL (3.2-5.2); ALT/SGPT 47 U/L (12-78); BILIRUBIN,DIRECT < 0.1 MG/DL (0.0-0.2); BILIRUBIN,TOTAL 0.2 MG/DL (0.2-1.0); BLOOD UREA NITROGEN 12 MG/DL (7-18); CALCIUM LEVEL 9.5 MG/DL (8.5-10.1); CARBON DIOXIDE LEVEL 29 MEQ/L (21-32); CHLORIDE LEVEL 107 MEQ/L (98-107); CREATININE FOR GFR 0.72 MG/DL (0.55-1.30); GLOMERULAR FILTRATION RATE > 60.0 (>60); GLUCOSE, FASTING 112 MG/DL (70-100); LIPASE 158 U/L (73-393); POTASSIUM SERUM 4.4 MEQ/L (3.5-5.1); SODIUM LEVEL 141 MEQ/L (136-145); TOTAL PROTEIN 7.2 GM/DL (6.4-8.2)
== END 2020-07-23 21:43 | disposition left against medical advice (07) ==
LOC: M ED 19:30
DX: D72.829 Elevated white blood cell count, unspecified (principal); R51 Headache; R10.9 Unspecified abdominal pain; J45.909 Unspecified asthma, uncomplicated; E28.2 Polycystic ovarian syndrome; Z79.899 Other long term (current) drug therapy
CPT/HCPCS: 80048; 80076; 81001; 83690; 84703; 85025; 96374; 96375; 99283; J1885; J2765

== ENCOUNTER → 2020-08-15 | Outpatient (CLI) | payer OTHER ==
--- NOTE | 2020-08-22 10:02 | REP ---
PELVIC ULTRASOUND HISTORY: Polycystic ovarian syndrome, excessive menstruation. TECHNIQUE: Real-time sonographic evaluation of the pelvis is performed utilizing transabdominal technique. FINDINGS: Bladder measures 8.8 x 5.2 x 2.8 cm for a total volume of 67 mL. Uterus measures 6.5 x 3.1 x 4.4 cm. Endometrial thickness is 6 mm with no endometrial fluid collection. Ovaries are normal in size and echotexture. Right ovary measuring 3.5 x 3.0 x 4.2 cm and left ovary 3.4 x 2.2 x 2.8 cm. There is no evidence of ovarian torsion with duplex Doppler evaluation. There is no adnexal mass. There is no free fluid. IMPRESSION: Essentially unremarkable pelvic ultrasound. MTDD
== END ==
LOC: M WHC 08:28
PROVIDERS: ATTEND Nurse Practitioner Adult Health
DX: E28.2 Polycystic ovarian syndrome (principal); N92.0 Excessive and frequent menstruation with regular cycle

== ENCOUNTER → 2020-08-25 | Outpatient (CLI) | payer OTHER ==
[2020-08-25 14:37] LABS: HEMATOCRIT 45.5 % (36.0-47.0); HEMOGLOBIN 13.5 g/dl (12.0-15.5); MEAN CORPUSCULAR HEMOGLOBIN 26.1 pg (27.0-33.0); MEAN CORPUSCULAR HGB CONC 29.7 g/dl (32.0-36.5); MEAN CORPUSCULAR VOLUME 87.8 fl (80.0-96.0); PLATELET COUNT, AUTOMATED 450 10^3/uL (150-450); RED BLOOD COUNT 5.18 10^6/uL (4.00-5.40); WHITE BLOOD COUNT 15.7 10^3/uL (4.0-10.0)
[2020-08-25 15:02] LABS: ATYPICAL LYMPH 6 % (0-5); EOSINOPHILS 3 % (0-3); LYMPHOCYTES 24 % (16-44); MONOCYTES 4 % (0-5); NEUTROPHILS 61 % (28-66); PLATELET ESTIMATE NORMAL (NORMAL)
[2020-08-25 15:11] LABS: ALBUMIN 3.5 GM/DL (3.2-5.2); ALT/SGPT 36 U/L (12-78); BILIRUBIN,TOTAL < 0.1 MG/DL (0.2-1.0); BLOOD UREA NITROGEN 13 MG/DL (7-18); CALCIUM LEVEL 9.4 MG/DL (8.5-10.1); CARBON DIOXIDE LEVEL 28 MEQ/L (21-32); CHLORIDE LEVEL 107 MEQ/L (98-107); CHOLESTEROL LEVEL 196 MG/DL (<200); CREATININE FOR GFR 0.57 MG/DL (0.55-1.30); FERRITIN 31 NG/ML (8-252); GLOMERULAR FILTRATION RATE > 60.0 (>60); GLUCOSE, FASTING 85 MG/DL (70-100); HDL CHOLESTEROL 40 MG/DL (>40); IRON (FE) 29 UG/DL (50-170); LDL CHOLESTEROL 126 MG/DL (<100); NON-HDL-C 156 MG/DL; PERCENT SATURATION 8.6 % (13.2-45.0); POTASSIUM SERUM 4.7 MEQ/L (3.5-5.1); SODIUM LEVEL 139 MEQ/L (136-145); TOTAL IRON BINDING CAPACITY 336 UG/DL (250-450); TOTAL PROTEIN 7.1 GM/DL (6.4-8.2); TRIGLYCERIDES LEVEL 148 MG/DL (<150)
[2020-08-25 15:45] LABS: HEMOGLOBIN A1c 5.3 %
== END ==
LOC: M WUC 09:58
PROVIDERS: ATTEND Nurse Practitioner Adult Health
DX: D72.829 Elevated white blood cell count, unspecified (principal); E78.00 Pure hypercholesterolemia, unspecified; N92.0 Excessive and frequent menstruation with regular cycle; K21.00 Gastro-esophageal reflux disease with esophagitis, without bleeding; E28.2 Polycystic ovarian syndrome; F41.9 Anxiety disorder, unspecified; Z79.899 Other long term (current) drug therapy

== ENCOUNTER → 2020-11-26 | Outpatient (REF) | payer OTHER | LOC: M LAB 23:28 | PROVIDERS: ATTEND Physician Assistant | DX: Z11.59 Encounter for screening for other viral diseases (principal) ==

== ENCOUNTER → 2021-03-05 | Outpatient (CLI) | payer OTHER ==
[2021-03-05 14:02] LABS: CORTISOL AM 0.6 UG/DL (4.3-22.4); PROLACTIN 4.7 NG/ML
== END ==
LOC: M LAB 07:18
PROVIDERS: ATTEND Internal Medicine
DX: E04.1 Nontoxic single thyroid nodule (principal)

== ENCOUNTER → 2021-08-31 | Outpatient (CLI) | payer OTHER ==
[~2021-08-31] MED LIST changes: +VYVA50CA4 PO
[2021-08-31 13:33] LABS: BASO # 0.1 10^3/uL (0.0-0.2); BASO % 0.4 % (0.0-1.0); EOS # 0.3 10^3/uL (0.0-0.5); HEMATOCRIT 42.5 % (36.0-47.0); HEMOGLOBIN 13.2 g/dl (12.0-15.5); LYMPH # 3.6 10^3/uL (1.5-5.0); LYMPH % 26.3 % (24.0-44.0); MEAN CORPUSCULAR HEMOGLOBIN 27.6 pg (27.0-33.0); MEAN CORPUSCULAR HGB CONC 31.1 g/dl (32.0-36.5); MEAN CORPUSCULAR VOLUME 88.9 fl (80.0-96.0); MONO # 0.7 10^3/uL (0.0-0.8); MONO % 4.9 % (2.0-8.0); PLATELET COUNT, AUTOMATED 371 10^3/uL (150-450); RED BLOOD COUNT 4.78 10^6/uL (4.00-5.40); WHITE BLOOD COUNT 13.7 10^3/uL (4.0-10.0)
[2021-08-31 14:08] LABS: HEMOGLOBIN A1c 5.4 %
[2021-08-31 14:23] LABS: ALBUMIN 3.3 GM/DL (3.2-5.2); ALT/SGPT 34 U/L (12-78); BILIRUBIN,TOTAL 0.2 MG/DL (0.2-1.0); BLOOD UREA NITROGEN 11 MG/DL (7-18); CALCIUM LEVEL 8.9 MG/DL (8.5-10.1); CARBON DIOXIDE LEVEL 28 MEQ/L (21-32); CHLORIDE LEVEL 108 MEQ/L (98-107); CHOLESTEROL LEVEL 144 MG/DL (<200); CHOLESTEROL RISK RATIO 3.692 (<5); CREATININE FOR GFR 0.65 MG/DL (0.55-1.30); FERRITIN 32 NG/ML (8-252); GLOMERULAR FILTRATION RATE > 60.0 (>60); GLUCOSE, FASTING 91 MG/DL (70-100); HDL CHOLESTEROL 39 MG/DL (>40); IRON (FE) 30 UG/DL (50-170); LDL CHOLESTEROL 87 MG/DL (<100); MAGNESIUM LEVEL 2.1 MG/DL (1.8-2.4); NON-HDL-C 105 MG/DL; PERCENT SATURATION 10.5 % (13.2-45.0); POTASSIUM SERUM 4.6 MEQ/L (3.5-5.1); SODIUM LEVEL 141 MEQ/L (136-145); THYROID STIMULATING HORMONE 0.738 uIU/ML (0.358-3.740); TOTAL 25(OH) VITAMIN D 35.4 NG/ML (30.0-100.0); TOTAL IRON BINDING CAPACITY 287 UG/DL (250-450); TOTAL PROTEIN 6.7 GM/DL (6.4-8.2); TRIGLYCERIDES LEVEL 89 MG/DL (<150)
== END ==
LOC: M WUC 10:11
PROVIDERS: ATTEND Nurse Practitioner Family
DX: D72.829 Elevated white blood cell count, unspecified (principal); Z79.899 Other long term (current) drug therapy; E55.9 Vitamin D deficiency, unspecified; E78.00 Pure hypercholesterolemia, unspecified

== ENCOUNTER → 2021-09-18 | Outpatient (CLI) | payer OTHER ==
--- NOTE | 2021-09-18 10:13 | REP ---
INDICATION: LT SOFT TISSUE MASS. COMPARISON: None. TECHNIQUE: Multiple sequences obtained in the axial, coronal and sagittal planes. FINDINGS: Left femur demonstrates normal bone marrow signal. There is no bone marrow edema or occult fracture. No bone lesion is visualized. The surrounding soft tissue structures demonstrate normal signal. No discrete soft tissue mass is seen. In the region of the palpable lump of the inner thigh, which is marked on the skin, there is underlying abundant subcutaneous fat which appears somewhat asymmetric compared to the right. This could represent a non encapsulated lipoma. There is no other evidence for soft tissue mass. No left inguinal adenopathy is seen. The visualized intrapelvic structures are unremarkable. The visualized portions of the uterus and ovaries appear normal. No free fluid is seen in the pelvis. IMPRESSION: In the region of the palpable lump of the inner thigh, which is marked on the skin, there is underlying abundant subcutaneous fat which appears somewhat asymmetric compared to the right. This could represent a non encapsulated lipoma. There is no other evidence for soft tissue mass. <Electronically signed by Renzo Sher > 09/18/21 [id number]
== END ==
LOC: M RAD 09-04 18:02
PROVIDERS: ATTEND Nurse Practitioner Family
DX: R22.42 Localized swelling, mass and lump, left lower limb (principal)

== ENCOUNTER → 2021-10-12 | Outpatient (CLI) | payer OTHER, SELFPAY ==
[2021-10-12 11:36] LABS: PROGESTERONE 9.14 NG/ML; THYROID STIMULATING HORMONE 0.556 uIU/ML (0.358-3.740)
[2021-10-12 11:37] LABS: FOLLICLE STIMULATING HORMONE 2.2 mIU/mL; LUTEINIZING HORMONE 6.2 mIU/mL
[2021-10-13 23:07] LABS: INSULIN LEVEL 71.5 uIU/mL (2.6-24.9); TESTOSTERONE FREE (DIRECT) 6.3 pg/mL (0.0-4.2)
== END ==
LOC: M PLALAB 09:06
PROVIDERS: ATTEND Specialist
DX: E28.2 Polycystic ovarian syndrome (principal)

== ENCOUNTER → 2021-10-29 | Outpatient (REF) | payer OTHER ==
[2021-10-29 12:49] LABS: APPEARANCE, URINE CLOUDY (CLEAR); BACTERIA, URINE AUTO NEGATIVE (NEGATIVE); BILIRUBIN, URINE AUTO NEGATIVE (NEGATIVE); BLOOD, URINE BLOOD 2+ (NEGATIVE); COLOR, URINE YELLOW (YELLOW); GLUCOSE, URINE (UA) AUTO NEGATIVE (NEGATIVE); KETONE, URINE AUTO NEGATIVE (NEGATIVE); LEUKOCYTE ESTERASE, URINE AUTO 3+ (NEGATIVE); MUCUS, URINE SMALL (NEGATIVE); NITRITE, URINE AUTO POSITIVE (NEGATIVE); PROTEIN, URINE AUTO 2+ mg/dL (NEGATIVE); RBC, URINE AUTO 26 /HPF (0-3); SPECIFIC GRAVITY URINE AUTO 1.017 (1.002-1.035); SQUAMOUS EPITHELIAL CELL UR AU 16 /HPF (0-6); UROBILINOGEN, URINE AUTO 0.2 mg/dL (0.0-2.0); WBC, URINE AUTO TNTC /HPF (0-3)
== END ==
LOC: M LAB REF 12:34
PROVIDERS: ATTEND Physician Assistant
DX: R30.0 Dysuria (principal)

== ENCOUNTER → 2022-05-03 | Outpatient (CLI) | payer OTHER ==
[~2022-05-03] MED LIST changes: -ZONI100C17 PO; +ZONI100C67 PO
[2022-05-03 11:06] LABS: BASO # 0.1 10^3/uL (0.0-0.2); BASO % 0.6 % (0.0-1.0); EOS # 0.7 10^3/uL (0.0-0.5); HEMATOCRIT 43.3 % (36.0-47.0); HEMOGLOBIN 13.3 g/dl (12.0-15.5); LYMPH # 4.4 10^3/uL (1.5-5.0); LYMPH % 27.2 % (24.0-44.0); MEAN CORPUSCULAR HEMOGLOBIN 27.1 pg (27.0-33.0); MEAN CORPUSCULAR HGB CONC 30.7 g/dl (32.0-36.5); MEAN CORPUSCULAR VOLUME 88.4 fl (80.0-96.0); MONO # 0.8 10^3/uL (0.0-0.8); MONO % 4.9 % (2.0-8.0); NEUTROPHILS # 10.2 10^3/uL (1.5-8.5); NEUTROPHILS % 62.6 % (36.0-66.0); PLATELET COUNT, AUTOMATED 398 10^3/uL (150-450); WHITE BLOOD COUNT 16.3 10^3/uL (4.0-10.0)
[2022-05-03 11:30] LABS: HEMOGLOBIN A1c 5.5 %
[2022-05-03 11:48] LABS: ALBUMIN 3.3 GM/DL (3.2-5.2); ALT/SGPT 30 U/L (12-78); BILIRUBIN,TOTAL 0.1 MG/DL (0.2-1.0); BLOOD UREA NITROGEN 11 MG/DL (7-18); CALCIUM LEVEL 8.6 MG/DL (8.5-10.1); CARBON DIOXIDE LEVEL 28 MEQ/L (21-32); CHLORIDE LEVEL 107 MEQ/L (98-107); CHOLESTEROL LEVEL 163 MG/DL (<200); CHOLESTEROL RISK RATIO 4.179 (<5); FERRITIN 22 NG/ML (8-252); GLOMERULAR FILTRATION RATE > 60.0 (>60); GLUCOSE, FASTING 74 MG/DL (70-100); HDL CHOLESTEROL 39 MG/DL (>40); IRON (FE) 32 UG/DL (50-170); LDL CHOLESTEROL 103 MG/DL (<100); MAGNESIUM LEVEL 2.2 MG/DL (1.8-2.4); NON-HDL-C 124 MG/DL; PERCENT SATURATION 9.2 % (13.2-45.0); POTASSIUM SERUM 4.4 MEQ/L (3.5-5.1); SODIUM LEVEL 141 MEQ/L (136-145); THYROID STIMULATING HORMONE 0.867 uIU/ML (0.358-3.740); TOTAL 25(OH) VITAMIN D 23.6 NG/ML (30.0-100.0); TOTAL IRON BINDING CAPACITY 347 UG/DL (250-450); TOTAL PROTEIN 6.8 GM/DL (6.4-8.2); TRIGLYCERIDES LEVEL 106 MG/DL (<150)
== END ==
LOC: M WUC 08:22
PROVIDERS: ATTEND Nurse Practitioner Family
DX: Z00.01 Encounter for general adult medical examination with abnormal findings (principal); E78.5 Hyperlipidemia, unspecified; Z13.220 Encounter for screening for lipoid disorders; Z79.899 Other long term (current) drug therapy; E61.1 Iron deficiency; E55.9 Vitamin D deficiency, unspecified

== ENCOUNTER → 2022-08-03 | Outpatient (CLI) | payer OTHER ==
[~2022-08-03] MED LIST changes: +ALBU6.7H6 INH; +IRON240T PO; +OSTE1TAB2 PO; -PROV108A INH
[2022-08-03 10:01] LABS: BASO # 0.1 10^3/uL (0.0-0.2); BASO % 0.4 % (0.0-1.0); EOS # 0.3 10^3/uL (0.0-0.5); HEMATOCRIT 47.2 % (36.0-47.0); HEMOGLOBIN 14.8 g/dl (12.0-15.5); LYMPH # 3.3 10^3/uL (1.5-5.0); LYMPH % 21.4 % (24.0-44.0); MEAN CORPUSCULAR HEMOGLOBIN 27.9 pg (27.0-33.0); MEAN CORPUSCULAR HGB CONC 31.4 g/dl (32.0-36.5); MEAN CORPUSCULAR VOLUME 89.1 fl (80.0-96.0); MONO # 0.8 10^3/uL (0.0-0.8); MONO % 5.2 % (2.0-8.0); NEUTROPHILS # 10.7 10^3/uL (1.5-8.5); NEUTROPHILS % 70.5 % (36.0-66.0); PLATELET COUNT, AUTOMATED 335 10^3/uL (150-450); WHITE BLOOD COUNT 15.2 10^3/uL (4.0-10.0)
[2022-08-03 10:23] LABS: HEMOGLOBIN A1c 5.1 %
[2022-08-03 10:54] LABS: ALBUMIN 3.6 GM/DL (3.2-5.2); ALT/SGPT 36 U/L (12-78); BILIRUBIN,TOTAL 0.4 MG/DL (0.2-1.0); BLOOD UREA NITROGEN 11 MG/DL (7-18); CALCIUM LEVEL 9.4 MG/DL (8.5-10.1); CARBON DIOXIDE LEVEL 29 MEQ/L (21-32); CHLORIDE LEVEL 106 MEQ/L (98-107); CHOLESTEROL LEVEL 174 MG/DL (<200); CREATININE FOR GFR 0.71 MG/DL (0.55-1.30); FERRITIN 428 NG/ML (8-252); GLOMERULAR FILTRATION RATE > 60.0 (>60); GLUCOSE, FASTING 80 MG/DL (70-100); HDL CHOLESTEROL 40 MG/DL (>40); IRON (FE) 76 UG/DL (50-170); LDL CHOLESTEROL 108 MG/DL (<100); MAGNESIUM LEVEL 2.4 MG/DL (1.8-2.4); NON-HDL-C 134 MG/DL; PERCENT SATURATION 29.9 % (13.2-45.0); POTASSIUM SERUM 4.1 MEQ/L (3.5-5.1); SODIUM LEVEL 138 MEQ/L (136-145); TOTAL IRON BINDING CAPACITY 254 UG/DL (250-450); TOTAL PROTEIN 7.1 GM/DL (6.4-8.2); TRIGLYCERIDES LEVEL 128 MG/DL (<150)
[2022-08-03 11:50] LABS: TOTAL 25(OH) VITAMIN D 22.4 NG/ML (30.0-100.0)
== END ==
LOC: M WUC 08:01
PROVIDERS: ATTEND Nurse Practitioner Family
DX: E61.1 Iron deficiency (principal)

== ENCOUNTER → 2022-09-02 | Outpatient (REF) | payer OTHER | LOC: M LAB REF 11:34 | PROVIDERS: ATTEND Physician Assistant | DX: R50.9 Fever, unspecified (principal) ==

== ENCOUNTER → 2022-10-27 | Outpatient (CLI) | payer OTHER ==
[2022-10-27 15:38] LABS: HEMOGLOBIN A1c 4.8 % (4.0-6.0)
== END ==
LOC: M PLALAB 09:28
PROVIDERS: ATTEND Obstetrics & Gynecology
DX: E28.2 Polycystic ovarian syndrome (principal)

== ENCOUNTER → 2022-11-03 | Outpatient (CLI) | payer OTHER ==
[2022-11-03 17:10] LABS: BASO % 0.3 % (0.0-1.0); EOS # 0.2 10^3/uL (0.0-0.5); EOS % 2.2 % (0.0-3.0); HEMATOCRIT 45.8 % (36.0-47.0); HEMOGLOBIN 14.5 g/dl (12.0-15.5); LYMPH # 2.7 10^3/uL (1.5-5.0); LYMPH % 25.8 % (24.0-44.0); MEAN CORPUSCULAR HEMOGLOBIN 30.4 pg (27.0-33.0); MEAN CORPUSCULAR HGB CONC 31.7 g/dl (32.0-36.5); MONO # 0.7 10^3/uL (0.0-0.8); MONO % 6.8 % (2.0-8.0); NEUTROPHILS # 6.7 10^3/uL (1.5-8.5); NEUTROPHILS % 64.6 % (36.0-66.0); PLATELET COUNT, AUTOMATED 321 10^3/uL (150-450); RED BLOOD COUNT 4.77 10^6/uL (4.00-5.40); WHITE BLOOD COUNT 10.3 10^3/uL (4.0-10.0)
[2022-11-03 17:13] LABS: MAGNESIUM LEVEL 1.9 MG/DL (1.8-2.4)
[2022-11-03 17:14] LABS: TOTAL IRON BINDING CAPACITY 267 UG/DL (250-425)
[2022-11-03 17:15] LABS: THYROID STIMULATING HORMONE 0.659 uIU/ML (0.55-4.78)
[2022-11-03 17:16] LABS: FERRITIN 214.2 NG/ML (7.3-270.7)
[2022-11-03 17:27] LABS: IRON (FE) 44 UG/DL (50-170); PERCENT SATURATION 16.5 % (13.2-45.0)
[2022-11-03 17:31] LABS: ALBUMIN 3.5 G/DL (3.2-5.2); ALKALINE PHOSPHATASE 72 U/L (46-116); ALT/SGPT 43 U/L (7.0-40); AST/SGOT 26 U/L (<34); BILIRUBIN,TOTAL 0.3 MG/DL (0.3-1.2); BLOOD UREA NITROGEN 12 MG/DL (9-23); CALCIUM LEVEL 9.3 MG/DL (8.5-10.1); CARBON DIOXIDE LEVEL 30 MMOL/L (20-31); CHLORIDE LEVEL 106 MMOL/L (98-107); CHOLESTEROL LEVEL 151 MG/DL (<200); CREATININE FOR GFR 0.52 MG/DL (0.55-1.30); GLOMERULAR FILTRATION RATE > 60.0 (>60); GLUCOSE, FASTING 86 MG/DL (60-100); HDL CHOLESTEROL 32.1 MG/DL (>40); LDL CHOLESTEROL 100.3 MG/DL (<100); NON-HDL-C 119 MG/DL; POTASSIUM SERUM 4.3 MMOL/L (3.5-5.1); SODIUM LEVEL 139 MMOL/L (136-145); TOTAL 25(OH) VITAMIN D 24.4 NG/ML (20.0-100.0); TOTAL PROTEIN 6.8 G/DL (5.7-8.2); TRIGLYCERIDES LEVEL 93 MG/DL (<150)
[2022-11-03 17:51] LABS: HEMOGLOBIN A1c 4.8 % (4.0-6.0)
== END ==
LOC: M WUC 10:58
PROVIDERS: ATTEND Nurse Practitioner Family
DX: N20.0 Calculus of kidney (principal)

== ENCOUNTER → 2023-01-18 | Outpatient (CLI) | payer OTHER ==
[~2023-01-18] MED LIST changes: +MONT-5 PO; -SING10TA32 PO
== END ==
LOC: M WHC 11:20
PROVIDERS: ATTEND Obstetrics & Gynecology
DX: E28.2 Polycystic ovarian syndrome (principal)

== ENCOUNTER → 2023-04-20 | Outpatient (CLI) | payer OTHER ==
[~2023-04-20] MED LIST changes: +BUPR-71 PO; +CLEO300C2 PO; +CLON1TAB8 PO; +ERGO500029 PO; +LETR2.5T2 PO; +SIMV10TA21 PO; +VITA100093 PO
== END ==
LOC: M LAB 06:36
PROVIDERS: ATTEND Advanced Practice Midwife
DX: Z34.90 Encounter for supervision of normal pregnancy, unspecified, unspecified trimester (principal)

== ENCOUNTER 2023-04-21 11:01 | Emergency (ER) | payer OTHER ==
[~2023-04-21] VITALS: Ht 152.4 cm; Wt 96.3 kg
[~2023-04-21 11:01] MED LIST changes: -CLEO300C2 PO
[2023-04-21 12:19] LABS: BASO # 0.1 10^3/uL (0.0-0.2); BASO % 0.3 % (0.0-1.0); EOS # 0.5 10^3/uL (0.0-0.5); EOS % 2.8 % (0.0-3.0); HEMATOCRIT 42.4 % (36.0-47.0); LYMPH # 3.7 10^3/uL (1.5-5.0); LYMPH % 22.9 % (24.0-44.0); MEAN CORPUSCULAR HEMOGLOBIN 30.4 pg (27.0-33.0); MONO # 0.8 10^3/uL (0.0-0.8); MONO % 4.9 % (2.0-8.0); NEUTROPHILS # 11.1 10^3/uL (1.5-8.5); NEUTROPHILS % 68.5 % (36.0-66.0); PLATELET COUNT, AUTOMATED 408 10^3/uL (150-450); RED BLOOD COUNT 4.61 10^6/uL (4.00-5.40); WHITE BLOOD COUNT 16.2 10^3/uL (4.0-10.0)
[2023-04-21 12:48] LABS: BLOOD UREA NITROGEN 13 MG/DL (9-23); CALCIUM LEVEL 9.1 MG/DL (8.5-10.1); CARBON DIOXIDE LEVEL 27 MMOL/L (20-31); CHLORIDE LEVEL 105 MMOL/L (98-107); CREATININE FOR GFR 0.51 MG/DL (0.55-1.30); GLOMERULAR FILTRATION RATE > 60.0 (>60); GLUCOSE, FASTING 87 MG/DL (60-100); POTASSIUM SERUM 4.6 MMOL/L (3.5-5.1); SODIUM LEVEL 138 MMOL/L (136-145)
[2023-04-21 13:03] LABS: HCG, SERUM QUANTITATIVE 7146.9 MIU/ML (<4.2)
[2023-04-21] MEDS ORDERED: CLINDAMYCIN 600 MG in IV 1 EA IV ONE (13:15)
[2023-04-21] MEDS ORDERED: CLEO300C2 PO (15:28)
[2023-04-21 15:35] VITALS: BP 139/89
== END 2023-04-21 15:36 | disposition home or self-care (01) ==
LOC: M ED 11:01
DX: O20.0 Threatened abortion (principal); L03.311 Cellulitis of abdominal wall; Z79.899 Other long term (current) drug therapy
CPT/HCPCS: 76801; 76817; 80048; 81001; 84702; 85025; 86850; 86900; 86901; 87086; 93976; 96365; 99284; S0077

== ENCOUNTER → 2023-04-22 | Outpatient (CLI) | payer OTHER ==
[~2023-04-22] MED LIST changes: +CLEO300C2 PO
== END ==
LOC: M LAB 06:01
PROVIDERS: ATTEND Advanced Practice Midwife
DX: Z34.90 Encounter for supervision of normal pregnancy, unspecified, unspecified trimester (principal)

== ENCOUNTER → 2023-06-23 | Outpatient (CLI) | payer OTHER ==
[~2023-06-23] MED LIST changes: +BRIN10TA4 PO; +BUPR15TASR PO; +CLON1TAB17 PO; +PROA1AER2 INH
[2023-06-23 18:59] LABS: HCG, SERUM QUALITATIVE POSITIVE (NEGATIVE)
[2023-06-24 09:46] LABS: HCG, SERUM QUANTITATIVE 251.3 MIU/ML (<4.2)
== END ==
LOC: M LAB 17:29
PROVIDERS: ATTEND Specialist
DX: N92.6 Irregular menstruation, unspecified (principal)

== ENCOUNTER → 2023-06-25 | Outpatient (CLI) | payer OTHER | LOC: M LAB 10:11 | PROVIDERS: ATTEND Specialist | DX: N92.6 Irregular menstruation, unspecified (principal) ==

== ENCOUNTER → 2023-07-13 | Outpatient (CLI) | payer OTHER ==
[2023-07-13 16:11] LABS: HEMATOCRIT 40.5 % (36.0-47.0); HEMOGLOBIN 13.1 g/dl (12.0-15.5); MEAN CORPUSCULAR HEMOGLOBIN 29.9 pg (27.0-33.0); MEAN CORPUSCULAR HGB CONC 32.3 g/dl (32.0-36.5); MEAN CORPUSCULAR VOLUME 92.5 fl (80.0-96.0); PLATELET COUNT, AUTOMATED 360 10^3/uL (150-450); RED BLOOD COUNT 4.38 10^6/uL (4.00-5.40); WHITE BLOOD COUNT 14.2 10^3/uL (4.0-10.0)
[2023-07-13 17:10] LABS: HIV 1&2 SCREEN NEGATIVE (NEGATIVE)
[2023-07-13 17:18] LABS: HEPATITIS C VIRUS ABY INDEX 0.13 INDEX (<0.8)
[2023-07-13 17:56] LABS: GC DNA AMPLIFICATION NEGATIVE (NEGATIVE)
== END ==
LOC: M PLALAB 12:10
PROVIDERS: ATTEND Specialist
DX: Z34.01 Encounter for supervision of normal first pregnancy, first trimester (principal)

== ENCOUNTER 2023-07-19 18:03 | Emergency (ER) | payer OTHER ==
[~2023-07-19] VITALS: Ht 152.4 cm; Wt 96.4 kg
[2023-07-19 18:04] VITALS: BP 130/74; TEMP 97.6; O2SAT 98
[2023-07-19] MEDS ORDERED: PRENTAB53 PO (18:10)
== END 2023-07-19 20:05 | disposition left against medical advice (07) ==
LOC: M ED 18:03
DX: Z53.21 Procedure and treatment not carried out due to patient leaving prior to being seen by health care provider (principal)

== ENCOUNTER → 2023-08-04 | Outpatient (CLI) | payer OTHER ==
[~2023-08-04] MED LIST changes: +PRENTAB53 PO
== END ==
LOC: M LAB 10:13
PROVIDERS: ATTEND Obstetrics & Gynecology
DX: Z34.80 Encounter for supervision of other normal pregnancy, unspecified trimester (principal)

== ENCOUNTER → 2023-08-12 | Outpatient (REF) | payer OTHER ==
[2023-08-12 19:04] LABS: TOTAL PROTEIN,RANDOM URINE 85.9 MG/DL (0.0-14.0)
== END ==
LOC: M SFHCWAGY 17:31
PROVIDERS: ATTEND Obstetrics & Gynecology
DX: O10.919 Unspecified pre-existing hypertension complicating pregnancy, unspecified trimester (principal); R30.0 Dysuria

== ENCOUNTER → 2023-09-06 | Outpatient (REF) | payer OTHER | LOC: M PLALAB 15:41 | PROVIDERS: ATTEND Obstetrics & Gynecology | DX: N39.0 Urinary tract infection, site not specified (principal) ==

== ENCOUNTER → 2023-09-21 | Outpatient (CLI) | payer OTHER | LOC: M PLALAB 12:27 | PROVIDERS: ATTEND Obstetrics & Gynecology | DX: R73.03 Prediabetes (principal) ==

== ENCOUNTER 2023-09-24 17:52 | Emergency (ER) | payer OTHER ==
[~2023-09-24] VITALS: Ht 152.4 cm; Wt 95.4 kg
[2023-09-24 17:54] VITALS: BP 126/73; TEMP 98.1; O2SAT 97
== END 2023-09-24 20:24 | disposition left against medical advice (07) ==
LOC: M ED 17:52
DX: Z53.21 Procedure and treatment not carried out due to patient leaving prior to being seen by health care provider (principal)

== ENCOUNTER → 2023-09-26 | Outpatient (REF) | payer OTHER | LOC: M PLALAB 13:14 | PROVIDERS: ATTEND Advanced Practice Midwife | DX: Z53.9 Procedure and treatment not carried out, unspecified reason (principal) ==

== ENCOUNTER → 2023-09-26 | Outpatient (REF) | payer OTHER ==
[2023-09-26 14:20] LABS: APPEARANCE, URINE HAZY (CLEAR); BACTERIA, URINE AUTO NEGATIVE (NEGATIVE); BILIRUBIN, URINE AUTO NEGATIVE (NEGATIVE); BLOOD, URINE BLOOD NEGATIVE (NEGATIVE); COLOR, URINE YELLOW (YELLOW); GLUCOSE, URINE (UA) AUTO NEGATIVE (NEGATIVE); KETONE, URINE AUTO TRACE mg/dL (NEGATIVE); LEUKOCYTE ESTERASE, URINE AUTO NEGATIVE (NEGATIVE); MUCUS, URINE SMALL (NEGATIVE); NITRITE, URINE AUTO NEGATIVE (NEGATIVE); PROTEIN, URINE AUTO 1+ mg/dL (NEGATIVE); RBC, URINE AUTO 1 /HPF (0-3); SPECIFIC GRAVITY URINE AUTO 1.024 (1.002-1.035); SQUAMOUS EPITHELIAL CELL UR AU 9 /HPF (0-6); WBC, URINE AUTO 2 /HPF (0-3)
== END ==
LOC: M SFHCWAGY 13:11
PROVIDERS: ATTEND Advanced Practice Midwife
DX: R31.0 Gross hematuria (principal)

== ENCOUNTER → 2023-12-23 | Outpatient (CLI) | payer OTHER ==
[~2023-12-23] MED LIST changes: +ACET325C5 PO; +ASPI81CH33 PO; +CLON0.5T17 PO; +ELIQ5TAB PO; +FERR325T3 PO; +FURO40TA2 PO; +GASTROGRAFIN SOLUTION 30ML As Ordered ONE; +HYDR-3363 PO; +ISOVUE-370 76% 100ML VIAL As Ordered ONE; +LISI10TA22 PO; +MM S100C PO; +MOXI1TAB PO; +PRENTAB9 PO; +PROG1CAP9 PV; +VITA500C24 PO
== END ==
LOC: M RAD 13:51
PROVIDERS: ATTEND Internal Medicine Infectious Disease
DX: T81.43XA Infection following a procedure, organ and space surgical site, initial encounter (principal); L02.211 Cutaneous abscess of abdominal wall; Y83.8 Other surgical procedures as the cause of abnormal reaction of the patient, or of later complication, without mention of misadventure at the time of the procedure
CPT/HCPCS: 74177; Q9963; Q9967

== ENCOUNTER 2023-12-28 17:57 | Emergency (ER) | payer OTHER ==
[~2023-12-28] VITALS: Ht 152.4 cm; Wt 86.4 kg
[~2023-12-28 17:57] MED LIST changes: -CLON0.5T17 PO; -GASTROGRAFIN SOLUTION 30ML As Ordered ONE; -HYDR-3363 PO; -ISOVUE-370 76% 100ML VIAL As Ordered ONE; -MM S100C PO
[2023-12-28 18:08] VITALS: BP 159/79; TEMP 97; O2SAT 97
[2023-12-28] MEDS ORDERED: CLON0.5T17 PO (18:14)
[2023-12-28] MEDS ORDERED: MM S100C PO (18:14)
[2023-12-28] MEDS ORDERED: HYDR-3363 PO (18:14)
[2023-12-28 19:12] LABS: BASO # 0.1 10^3/uL (0.0-0.2); BASO % 0.6 % (0.0-1.0); EOS # 0.3 10^3/uL (0.0-0.5); HEMATOCRIT 35.3 % (36.0-47.0); LYMPH # 3.6 10^3/uL (1.5-5.0); LYMPH % 25.9 % (24.0-44.0); MEAN CORPUSCULAR HEMOGLOBIN 27.6 pg (27.0-33.0); MEAN CORPUSCULAR HGB CONC 31.2 g/dl (32.0-36.5); MEAN CORPUSCULAR VOLUME 88.5 fl (80.0-96.0); MONO # 0.7 10^3/uL (0.0-0.8); MONO % 5.2 % (2.0-8.0); NEUTROPHILS # 9.1 10^3/uL (1.5-8.5); NEUTROPHILS % 66.1 % (36.0-66.0); PLATELET COUNT, AUTOMATED 304 10^3/uL (150-450); RED BLOOD COUNT 3.99 10^6/uL (4.00-5.40); WHITE BLOOD COUNT 13.8 10^3/uL (4.0-10.0)
[2023-12-28 19:35] LABS: BLOOD UREA NITROGEN 11 MG/DL (9-23); CALCIUM LEVEL 9.2 MG/DL (8.5-10.1); CARBON DIOXIDE LEVEL 27 MMOL/L (20-31); CHLORIDE LEVEL 106 MMOL/L (98-107); CREATININE FOR GFR 0.55 MG/DL (0.55-1.30); GLOMERULAR FILTRATION RATE > 60.0 (>60); GLUCOSE, FASTING 91 MG/DL (60-100); POTASSIUM SERUM 3.4 MMOL/L (3.5-5.1); SODIUM LEVEL 140 MMOL/L (136-145)
[2023-12-28 19:43] LABS: HCG, SERUM QUALITATIVE NEGATIVE (NEGATIVE)
== END 2023-12-28 20:10 | disposition left against medical advice (07) ==
LOC: M ED 17:57 → EDBD 17:57 → M ED 20:10
DX: Z53.21 Procedure and treatment not carried out due to patient leaving prior to being seen by health care provider (principal)

== ENCOUNTER → 2024-01-10 | Outpatient (CLI) | payer OTHER ==
[~2024-01-10] MED LIST changes: +CLON0.5T17 PO; +HYDR-3363 PO; +MM S100C PO
== END ==
LOC: M LAB 08:47
PROVIDERS: ATTEND Nurse Practitioner
DX: D50.9 Iron deficiency anemia, unspecified (principal)

== ENCOUNTER → 2024-01-10 | Outpatient (CLI) | payer OTHER ==
[2024-01-10 09:45] LABS: APPEARANCE, URINE CLOUDY (CLEAR); BACTERIA, URINE AUTO NEGATIVE (NEGATIVE); BILIRUBIN, URINE AUTO NEGATIVE (NEGATIVE); BLOOD, URINE BLOOD 2+ (NEGATIVE); COLOR, URINE RED (YELLOW); GLUCOSE, URINE (UA) AUTO NEGATIVE (NEGATIVE); KETONE, URINE AUTO NEGATIVE (NEGATIVE); LEUKOCYTE ESTERASE, URINE AUTO NEGATIVE (NEGATIVE); NITRITE, URINE AUTO NEGATIVE (NEGATIVE); PROTEIN, URINE AUTO 2+ mg/dL (NEGATIVE); RBC, URINE AUTO TNTC /HPF (0-3); SPECIFIC GRAVITY URINE AUTO 1.012 (1.002-1.035); SQUAMOUS EPITHELIAL CELL UR AU 0 /HPF (0-6); UROBILINOGEN, URINE AUTO 0.2 mg/dL (0.0-2.0); WBC, URINE AUTO 0 /HPF (0-3)
[2024-01-10 09:52] LABS: BASO # 0.1 10^3/uL (0.0-0.2); BASO % 0.6 % (0.0-1.0); EOS # 0.3 10^3/uL (0.0-0.5); EOS % 3.4 % (0.0-3.0); HEMATOCRIT 39.7 % (36.0-47.0); HEMOGLOBIN 12.8 g/dl (12.0-15.5); LYMPH # 2.1 10^3/uL (1.5-5.0); LYMPH % 23.8 % (24.0-44.0); MEAN CORPUSCULAR HEMOGLOBIN 28.6 pg (27.0-33.0); MEAN CORPUSCULAR HGB CONC 32.2 g/dl (32.0-36.5); MEAN CORPUSCULAR VOLUME 88.8 fl (80.0-96.0); MONO # 0.4 10^3/uL (0.0-0.8); MONO % 4.2 % (2.0-8.0); NEUTROPHILS % 67.8 % (36.0-66.0); PLATELET COUNT, AUTOMATED 331 10^3/uL (150-450); RED BLOOD COUNT 4.47 10^6/uL (4.00-5.40); WHITE BLOOD COUNT 8.8 10^3/uL (4.0-10.0)
[2024-01-10 10:26] LABS: ALBUMIN 3.5 G/DL (3.2-5.2); ALKALINE PHOSPHATASE 98 U/L (46-116); ALT/SGPT 40 U/L (7.0-40); AST/SGOT 33 U/L (<34); BILIRUBIN,TOTAL 0.4 MG/DL (0.3-1.2); BLOOD UREA NITROGEN 10 MG/DL (9-23); CALCIUM LEVEL 9.6 MG/DL (8.5-10.1); CARBON DIOXIDE LEVEL 28 MMOL/L (20-31); CHLORIDE LEVEL 106 MMOL/L (98-107); CREATININE FOR GFR 0.63 MG/DL (0.55-1.30); GLOMERULAR FILTRATION RATE > 60.0 (>60); GLUCOSE, FASTING 78 MG/DL (60-100); POTASSIUM SERUM 4.3 MMOL/L (3.5-5.1); SODIUM LEVEL 141 MMOL/L (136-145); TOTAL PROTEIN 7.4 G/DL (5.7-8.2)
== END ==
LOC: M LAB 08:49
PROVIDERS: ATTEND Registered Nurse
DX: N20.0 Calculus of kidney (principal); I26.99 Other pulmonary embolism without acute cor pulmonale; Z79.899 Other long term (current) drug therapy; E61.1 Iron deficiency; D72.829 Elevated white blood cell count, unspecified

== ENCOUNTER → 2024-01-16 | Outpatient (CLI) | payer OTHER ==
[~2024-01-16] MED LIST changes: +GASTROGRAFIN SOLUTION 30ML As Ordered ONE; +ISOVUE-370 76% 100ML VIAL As Ordered ONE
== END ==
LOC: M RAD 11:07
PROVIDERS: ATTEND Internal Medicine
DX: L02.211 Cutaneous abscess of abdominal wall (principal); Z98.891 History of uterine scar from previous surgery; T81.43XA Infection following a procedure, organ and space surgical site, initial encounter; Z79.2 Long term (current) use of antibiotics; Y83.8 Other surgical procedures as the cause of abnormal reaction of the patient, or of later complication, without mention of misadventure at the time of the procedure
CPT/HCPCS: 74177; Q9963; Q9967

== ENCOUNTER → 2024-02-09 | Outpatient (CLI) | payer OTHER | LOC: M RAD 12:05 | PROVIDERS: ATTEND Internal Medicine | DX: T81.43XA Infection following a procedure, organ and space surgical site, initial encounter (principal); Z98.891 History of uterine scar from previous surgery; Z79.2 Long term (current) use of antibiotics; R16.2 Hepatomegaly with splenomegaly, not elsewhere classified; Y84.9 Medical procedure, unspecified as the cause of abnormal reaction of the patient, or of later complication, without mention of misadventure at the time of the procedure | CPT/HCPCS: 74177; Q9963; Q9967 ==

== ENCOUNTER 2024-02-15 08:14 | Inpatient (IN) | payer OTHER ==
[~2024-02-15] VITALS: Ht 152.4 cm; Wt 89.3 kg
[~2024-02-15 08:14] MED LIST changes: -GASTROGRAFIN SOLUTION 30ML As Ordered ONE; -ISOVUE-370 76% 100ML VIAL As Ordered ONE
[2024-02-15] MEDS ORDERED: FLUC150T9 (10:47)
[2024-02-15] MEDS ORDERED: ALBU8.5H INH (10:47)
[2024-02-15] MEDS ORDERED: VITA500T9 PO (10:47)
[2024-02-15] MEDS ORDERED: VYVA50CA4 (10:47)
[2024-02-15 11:11] LABS: BASO % 0.3 % (0.0-1.0); EOS # 0.2 10^3/uL (0.0-0.5); EOS % 1.8 % (0.0-3.0); HEMATOCRIT 40.1 % (36.0-47.0); HEMOGLOBIN 12.5 g/dl (12.0-15.5); LYMPH # 2.9 10^3/uL (1.5-5.0); LYMPH % 23.4 % (24.0-44.0); MEAN CORPUSCULAR HEMOGLOBIN 27.2 pg (27.0-33.0); MEAN CORPUSCULAR HGB CONC 31.2 g/dl (32.0-36.5); MEAN CORPUSCULAR VOLUME 87.4 fl (80.0-96.0); MONO # 0.5 10^3/uL (0.0-0.8); MONO % 4.2 % (2.0-8.0); NEUTROPHILS # 8.6 10^3/uL (1.5-8.5); NEUTROPHILS % 69.9 % (36.0-66.0); PLATELET COUNT, AUTOMATED 383 10^3/uL (150-450); RED BLOOD COUNT 4.59 10^6/uL (4.00-5.40); WHITE BLOOD COUNT 12.4 10^3/uL (4.0-10.0)
[2024-02-15 11:41] LABS: LIPASE 41 U/L (12-53)
[2024-02-15 11:45] LABS: ALBUMIN 3.8 G/DL (3.2-5.2); ALKALINE PHOSPHATASE 83 U/L (46-116); ALT/SGPT 24 U/L (7.0-40); AST/SGOT 10 U/L (<34); BILIRUBIN,DIRECT 0.1 MG/DL (<0.4); BILIRUBIN,TOTAL 0.4 MG/DL (0.3-1.2); BLOOD UREA NITROGEN 15 MG/DL (9-23); CALCIUM LEVEL 9.5 MG/DL (8.5-10.1); CARBON DIOXIDE LEVEL 26 MMOL/L (20-31); CHLORIDE LEVEL 108 MMOL/L (98-107); CREATININE FOR GFR 0.58 MG/DL (0.55-1.30); GLOMERULAR FILTRATION RATE > 60.0 (>60); GLUCOSE, FASTING 87 MG/DL (60-100); POTASSIUM SERUM 4.5 MMOL/L (3.5-5.1); SODIUM LEVEL 141 MMOL/L (136-145); TOTAL PROTEIN 7.2 G/DL (5.7-8.2)
[2024-02-15] MEDS ORDERED: ISOVUE-370 76% 100ML VIAL As Ordered ONE (12:04)
[2024-02-15] MEDS: METOCLOPRAMIDE INJ 10MG/2ML VIAL IV ONE (12:15)
[2024-02-15] MEDS: MORPHINE 4 MG/ML 1ML VIAL IV ONE (12:15)
[2024-02-15] MEDS: NS 1,000 ML IV ONE (12:15)
[2024-02-15 12:19] LABS: INR 1.13; PARTIAL THROMBOPLASTIN TIME 35.8 SECONDS (24.8-34.2); PROTHROMBIN TIME 14.2 SECONDS (12.5-14.5)
[2024-02-15] MEDS ORDERED: VANCOMYCIN HCL 1,750 MG in NS 250 ML IV ONE (14:25)
[2024-02-15] MEDS: PIPERACILLIN/TAZOBACTAM SOD 3.375 GM in D5W MINI-BAG PLUS 50 ML IV ONE (14:40)
[2024-02-15] MEDS ORDERED: ACET-683 PO (15:00)
[2024-02-15] MEDS ORDERED: CLON0.5T2 PO (15:00)
[2024-02-15] MEDS ORDERED: HOME MED LIST COMPLETE! XX SCH (15:05)
[2024-02-15] MEDS: VANCOMYCIN HCL 1,000 MG, VIAL MATE ADAPTER 1 EACH in D5W 250 ML IV ONE (15:51)
[2024-02-15] MEDS ORDERED: MOM 30ML SUSPENSION UDC PO PRN (15:55)
[2024-02-15] MEDS ORDERED: ALBUTEROL 90 MCG/ACT 8GM HFA INHALER INH PRN (16:25)
[2024-02-15 17:13] LABS: C REACTIVE PROTEIN QUANTITATIV 5.1 MG/DL (<1.0)
[2024-02-15] MEDS: VANCOMYCIN HCL 750 MG, VIAL MATE ADAPTER 1 EACH in D5W 250 ML IV ONE (17:19)
[2024-02-15 18:23] VITALS: BP 126/61; TEMP 98.3; O2SAT 95
[2024-02-15] MEDS: ACETAMINOPHEN TAB 650MG DOSE (2X325MG) PO PRN (19:02)
[2024-02-15 20:00] VITALS: BP 108/58; TEMP 96.6; O2SAT 98
[2024-02-15] MEDS: APIXABAN 5 MG TAB (ELIQUIS) PO SCH (20:58)
[2024-02-15] MEDS: DOCUSATE SODIUM 100MG CAPSULE PO SCH (20:59)
[2024-02-15] MEDS: PIPERACILLIN/TAZOBACTAM SOD 4.5 GM in D5W MINI-BAG PLUS 50 ML IV SCH (20:59)
[2024-02-15] MEDS: VANCOMYCIN HCL 1,000 MG, VIAL MATE ADAPTER 1 EACH in D5W 250 ML IV SCH (22:22)
[2024-02-16 06:00] VITALS: BP 97/56; TEMP 96.9; O2SAT 98
[2024-02-16 08:26] LABS: BASO % 0.3 % (0.0-1.0); EOS # 0.3 10^3/uL (0.0-0.5); EOS % 2.3 % (0.0-3.0); HEMATOCRIT 36.1 % (36.0-47.0); HEMOGLOBIN 11.4 g/dl (12.0-15.5); LYMPH # 2.7 10^3/uL (1.5-5.0); LYMPH % 23.1 % (24.0-44.0); MEAN CORPUSCULAR HEMOGLOBIN 27.8 pg (27.0-33.0); MEAN CORPUSCULAR HGB CONC 31.6 g/dl (32.0-36.5); MONO # 0.5 10^3/uL (0.0-0.8); MONO % 4.3 % (2.0-8.0); NEUTROPHILS # 8.2 10^3/uL (1.5-8.5); NEUTROPHILS % 69.7 % (36.0-66.0); PLATELET COUNT, AUTOMATED 354 10^3/uL (150-450); WHITE BLOOD COUNT 11.8 10^3/uL (4.0-10.0)
[2024-02-16 08:58] LABS: BLOOD UREA NITROGEN 11 MG/DL (9-23); CALCIUM LEVEL 8.6 MG/DL (8.5-10.1); CARBON DIOXIDE LEVEL 29 MMOL/L (20-31); CHLORIDE LEVEL 107 MMOL/L (98-107); CREATININE FOR GFR 0.63 MG/DL (0.55-1.30); GLOMERULAR FILTRATION RATE > 60.0 (>60); GLUCOSE, FASTING 100 MG/DL (60-100); POTASSIUM SERUM 4.6 MMOL/L (3.5-5.1); SODIUM LEVEL 140 MMOL/L (136-145)
[2024-02-16] MEDS: FERROUS SULFATE 325MG TAB PO SCH (09:08)
[2024-02-16] MEDS ORDERED: MEROPENEM INJ 2 GM in NS 100 ML IV SCH (11:15)
[2024-02-16] MEDS: MEROPENEM INJ 1 GM in IV 1 EA IV SCH (12:32)
[2024-02-16 14:00] VITALS: BP 123/62; TEMP 97.3; O2SAT 97
[2024-02-16 14:02] LABS: VANCOMYCIN LEVEL TROUGH 14.6 UG/ML (10.0-20.0)
[2024-02-16] MEDS: METOCLOPRAMIDE INJ 10MG/2ML VIAL IV PRN (14:50)
[2024-02-16 17:10] LABS: PROCALCITONIN <0.04 ng/ml
[2024-02-16 21:00] VITALS: BP 127/59; TEMP 97.1; O2SAT 98
[2024-02-16] MEDS: ERTAPENEM SODIUM 1 GM in NS MINI-BAG PLUS 50 ML IV SCH (21:04)
[2024-02-16] MEDS: FLUCONAZOLE 100 MG TAB PO SCH (21:04)
[2024-02-16] MEDS: MAALOX 30 ML SUSP *UDC PO PRN (21:11)
[2024-02-17 04:00] VITALS: BP 106/54; TEMP 97.8; O2SAT 95
[2024-02-17 06:34] LABS: BASO % 0.3 % (0.0-1.0); EOS # 0.2 10^3/uL (0.0-0.5); EOS % 2.1 % (0.0-3.0); HEMATOCRIT 33.7 % (36.0-47.0); HEMOGLOBIN 10.7 g/dl (12.0-15.5); LYMPH # 2.2 10^3/uL (1.5-5.0); LYMPH % 21.5 % (24.0-44.0); MEAN CORPUSCULAR HEMOGLOBIN 27.5 pg (27.0-33.0); MEAN CORPUSCULAR HGB CONC 31.8 g/dl (32.0-36.5); MEAN CORPUSCULAR VOLUME 86.6 fl (80.0-96.0); MONO # 0.5 10^3/uL (0.0-0.8); MONO % 4.4 % (2.0-8.0); NEUTROPHILS # 7.4 10^3/uL (1.5-8.5); NEUTROPHILS % 71.3 % (36.0-66.0); PLATELET COUNT, AUTOMATED 300 10^3/uL (150-450); RED BLOOD COUNT 3.89 10^6/uL (4.00-5.40); WHITE BLOOD COUNT 10.3 10^3/uL (4.0-10.0)
[2024-02-17] MEDS: MUPIROCIN 2% OINT 22 GM TUBE TOP SCH (11:49)
[2024-02-17] MEDS ORDERED: FLUC100T3 PO (12:03)
[2024-02-17] MEDS: clonazePAM 0.5 MG TAB PO PRN (13:12)
[2024-02-17 14:00] VITALS: BP 122/65; TEMP 96.7; O2SAT 98
== END 2024-02-17 16:38 | disposition home or self-care (01) | DRG 531 ==
LOC: M ED 11:32 → M ED INP 15:54 → M PED 18:12
PROVIDERS: ADMIT Student in an Organized Health Care Education/Training Program; ATTEND Student in an Organized Health Care Education/Training Program
DX: N73.8 Other specified female pelvic inflammatory diseases (principal); E28.2 Polycystic ovarian syndrome; E78.5 Hyperlipidemia, unspecified; F17.210 Nicotine dependence, cigarettes, uncomplicated; D72.829 Elevated white blood cell count, unspecified; Z86.711 Personal history of pulmonary embolism; Z79.01 Long term (current) use of anticoagulants; Z79.899 Other long term (current) drug therapy

== ENCOUNTER 2024-02-18 15:49 | Outpatient (CLI) | payer OTHER ==
[~2024-02-18] VITALS: Ht 149.9 cm; Wt 88.0 kg
[~2024-02-18 15:49] MED LIST changes: +ALBU8.5H INH; +BACTRIM 160MG/800MG DS TAB PO SCH; +CLON0.5T2 PO; +FLUC100T3 PO; +FLUC150T9; +VITA500T9 PO; +VYVA50CA4
[2024-02-18 16:00] VITALS: BP 133/78; O2SAT 98
[2024-02-18] MEDS: ERTAPENEM SODIUM 1 GM in NS MINI-BAG PLUS 50 ML IV ONE (17:36)
[2024-02-18 18:30] VITALS: BP 143/78; O2SAT 100
== END 2024-02-18 18:33 | disposition home or self-care (01) ==
LOC: M OPCLIPED 15:49 → M PED 15:58 → M OPCLIPED 18:33
PROVIDERS: ATTEND Internal Medicine Infectious Disease
DX: K65.1 Peritoneal abscess (principal)
CPT/HCPCS: 96365; J1335

== ENCOUNTER 2024-02-19 11:20 | Outpatient (CLI) | payer OTHER ==
[~2024-02-19] VITALS: Ht 149.9 cm; Wt 88.0 kg
[~2024-02-19 11:20] MED LIST changes: -BACTRIM 160MG/800MG DS TAB PO SCH
[2024-02-19 11:30] VITALS: BP 135/82; O2SAT 97
[2024-02-19] MEDS: ERTAPENEM SODIUM 1 GM in NS MINI-BAG PLUS 50 ML IV ONE (12:08)
[2024-02-19 12:58] VITALS: BP 126/79; O2SAT 97
== END 2024-02-19 13:05 | disposition home or self-care (01) ==
LOC: M OPCLIPED 11:20 → M PED 11:29 → M OPCLIPED 13:05
PROVIDERS: ATTEND Internal Medicine Infectious Disease
DX: K65.1 Peritoneal abscess (principal)
CPT/HCPCS: 96365; J1335

== ENCOUNTER 2024-02-20 16:47 | Outpatient (CLI) | payer OTHER ==
[~2024-02-20] VITALS: Ht 149.9 cm; Wt 88.0 kg
[2024-02-20 17:00] VITALS: BP 138/63; O2SAT 99
[2024-02-20] MEDS: ERTAPENEM SODIUM 1 GM in NS MINI-BAG PLUS 50 ML IV ONE (17:01)
[2024-02-20 17:34] VITALS: BP 142/82; O2SAT 99
== END 2024-02-20 17:36 | disposition home or self-care (01) ==
LOC: M INFU 16:47
PROVIDERS: ATTEND Internal Medicine Infectious Disease
DX: K65.1 Peritoneal abscess (principal)
CPT/HCPCS: 96365; J1335

== ENCOUNTER 2024-02-21 16:36 | Outpatient (CLI) | payer OTHER ==
[~2024-02-21] VITALS: Ht 149.9 cm; Wt 88.0 kg
[2024-02-21 16:50] VITALS: BP 141/82; O2SAT 98
[2024-02-21] MEDS: ERTAPENEM SODIUM 1 GM in NS MINI-BAG PLUS 50 ML IV ONE (16:59)
[2024-02-21 17:25] VITALS: BP 136/78; O2SAT 98
== END 2024-02-21 17:25 | disposition home or self-care (01) ==
LOC: M INFU 16:36
PROVIDERS: ATTEND Internal Medicine Infectious Disease
DX: K65.1 Peritoneal abscess (principal)
CPT/HCPCS: 96365; J1335

== ENCOUNTER 2024-02-22 16:28 | Outpatient (CLI) | payer OTHER ==
[~2024-02-22] VITALS: Ht 149.9 cm; Wt 88.0 kg
[2024-02-22 16:45] VITALS: BP 131/91; O2SAT 99
[2024-02-22] MEDS: ERTAPENEM SODIUM 1 GM in NS MINI-BAG PLUS 50 ML IV SCH (17:00)
[2024-02-22 17:17] LABS: HEMATOCRIT 36.9 % (36.0-47.0); HEMOGLOBIN 11.9 g/dl (12.0-15.5); MEAN CORPUSCULAR HEMOGLOBIN 27.4 pg (27.0-33.0); MEAN CORPUSCULAR HGB CONC 32.2 g/dl (32.0-36.5); MEAN CORPUSCULAR VOLUME 84.8 fl (80.0-96.0); PLATELET COUNT, AUTOMATED 426 10^3/uL (150-450); RED BLOOD COUNT 4.35 10^6/uL (4.00-5.40); WHITE BLOOD COUNT 11.7 10^3/uL (4.0-10.0)
[2024-02-22 17:30] VITALS: BP 119/85; O2SAT 100
[2024-02-22 17:40] LABS: ERYTHROCYTE SEDIMENTATION RATE 60 mm/hr (0-20)
[2024-02-22 17:41] LABS: ALBUMIN 3.8 G/DL (3.2-5.2); ALKALINE PHOSPHATASE 82 U/L (46-116); ALT/SGPT 23 U/L (7.0-40); AST/SGOT 16 U/L (<34); BILIRUBIN,TOTAL 0.2 MG/DL (0.3-1.2); BLOOD UREA NITROGEN 13 MG/DL (9-23); CALCIUM LEVEL 9.6 MG/DL (8.5-10.1); CARBON DIOXIDE LEVEL 26 MMOL/L (20-31); CHLORIDE LEVEL 104 MMOL/L (98-107); CREATININE FOR GFR 0.57 MG/DL (0.55-1.30); GLOMERULAR FILTRATION RATE > 60.0 (>60); GLUCOSE, FASTING 83 MG/DL (60-100); POTASSIUM SERUM 4.6 MMOL/L (3.5-5.1); SODIUM LEVEL 138 MMOL/L (136-145); TOTAL PROTEIN 7.3 G/DL (5.7-8.2)
== END 2024-02-22 17:30 ==
LOC: M INFU 16:28
PROVIDERS: ATTEND Internal Medicine Infectious Disease
DX: K65.1 Peritoneal abscess (principal)
CPT/HCPCS: 36592; 80053; 85027; 85652; 86140; 96365; J1335

== ENCOUNTER 2024-02-23 16:40 | Outpatient (CLI) | payer OTHER ==
[2024-02-23] MEDS: ERTAPENEM SODIUM 1 GM in NS MINI-BAG PLUS 50 ML IV ONE (16:54)
[2024-02-23 17:07] VITALS: BP 137/88; O2SAT 98
[2024-02-23 17:36] VITALS: BP 136/92; O2SAT 100
== END 2024-02-23 17:36 ==
LOC: M INFU 16:40
PROVIDERS: ATTEND Internal Medicine Infectious Disease
DX: K65.1 Peritoneal abscess (principal)
CPT/HCPCS: 96365; J1335

== ENCOUNTER 2024-02-24 16:25 | Outpatient (CLI) | payer OTHER ==
[2024-02-24 16:25] VITALS: BP 147/81; O2SAT 98
[2024-02-24] MEDS: ERTAPENEM SODIUM 1 GM in NS MINI-BAG PLUS 50 ML IV ONE (16:45)
[2024-02-24 17:10] VITALS: BP 125/72; O2SAT 99
== END 2024-02-24 17:10 ==
LOC: M INFU 16:25 → M OPCLIPED 02-25 11:16 → M PED 02-25 11:18
PROVIDERS: ATTEND Internal Medicine Infectious Disease
DX: K65.1 Peritoneal abscess (principal)
CPT/HCPCS: 96365; J1335

== ENCOUNTER 2024-02-25 11:48 | Outpatient (CLI) | payer OTHER ==
[~2024-02-25] VITALS: Ht 149.9 cm; Wt 88.0 kg
[2024-02-25 11:30] VITALS: BP 134/83; TEMP 97.5; O2SAT 98
[2024-02-25] MEDS ORDERED: HOME MED LIST COMPLETE! XX SCH (12:25)
[2024-02-25] MEDS: ERTAPENEM SODIUM 1 GM in NS MINI-BAG PLUS 50 ML IV SCH (13:00)
[2024-02-25 13:40] VITALS: BP 132/77; TEMP 97.9; O2SAT 99
== END 2024-02-25 13:44 | disposition home or self-care (01) ==
LOC: M OPCLIPED 11:48 → M PED 11:50 → M OPCLIPED 13:44
PROVIDERS: ATTEND Internal Medicine Infectious Disease
DX: K65.1 Peritoneal abscess (principal)
CPT/HCPCS: 96365; J1335

== ENCOUNTER 2024-02-26 08:20 | Outpatient (CLI) | payer OTHER ==
[~2024-02-26] VITALS: Ht 149.9 cm; Wt 88.0 kg
[2024-02-26 08:30] VITALS: BP 135/84; TEMP 97.1; O2SAT 98
[2024-02-26] MEDS ORDERED: HOME MED LIST COMPLETE! XX SCH (08:35)
[2024-02-26] MEDS: ERTAPENEM SODIUM 1 GM in NS MINI-BAG PLUS 50 ML IV ONE (08:56)
[2024-02-26 09:35] VITALS: BP 128/82; TEMP 97.9; O2SAT 97
== END 2024-02-26 09:40 | disposition home or self-care (01) ==
LOC: M OPCLIPED 08:20 → M PED 08:22 → M OPCLIPED 09:40
PROVIDERS: ATTEND Internal Medicine Infectious Disease
DX: K65.1 Peritoneal abscess (principal)
CPT/HCPCS: 96365; J1335

== ENCOUNTER → 2024-02-27 | Outpatient (CLI) | payer OTHER ==
[~2024-02-27] VITALS: Ht 149.9 cm; Wt 88.0 kg
[2024-02-27] MEDS: ERTAPENEM SODIUM 1 GM in NS MINI-BAG PLUS 50 ML IV ONE (07:57)
[2024-02-27 08:00] VITALS: BP 130/80; O2SAT 98
[2024-02-27 08:40] VITALS: BP 118/75; O2SAT 99
== END ==
LOC: M INFU 07:41
PROVIDERS: ATTEND Internal Medicine Infectious Disease
DX: K65.1 Peritoneal abscess (principal)
CPT/HCPCS: 96365; J1335

== ENCOUNTER 2024-02-28 16:40 | Outpatient (CLI) | payer OTHER ==
[~2024-02-28] VITALS: Ht 152.4 cm; Wt 87.3 kg
[2024-02-28 14:40] VITALS: BP 119/80; O2SAT 98
[2024-02-28] MEDS: ERTAPENEM SODIUM 1 GM in NS MINI-BAG PLUS 50 ML IV ONE (16:59)
[2024-02-28 17:12] LABS: BASO # 0.1 10^3/uL (0.0-0.2); BASO % 0.5 % (0.0-1.0); EOS # 0.3 10^3/uL (0.0-0.5); EOS % 2.6 % (0.0-3.0); HEMATOCRIT 35.8 % (36.0-47.0); HEMOGLOBIN 11.8 g/dl (12.0-15.5); LYMPH % 30.2 % (24.0-44.0); MEAN CORPUSCULAR HEMOGLOBIN 27.4 pg (27.0-33.0); MEAN CORPUSCULAR VOLUME 83.3 fl (80.0-96.0); MONO # 0.5 10^3/uL (0.0-0.8); MONO % 4.1 % (2.0-8.0); NEUTROPHILS # 8.3 10^3/uL (1.5-8.5); NEUTROPHILS % 62.4 % (36.0-66.0); PLATELET COUNT, AUTOMATED 443 10^3/uL (150-450); WHITE BLOOD COUNT 13.3 10^3/uL (4.0-10.0)
[2024-02-28 17:25] VITALS: BP 114/55; O2SAT 97
[2024-02-28 17:36] LABS: ALBUMIN 3.5 G/DL (3.2-5.2); ALKALINE PHOSPHATASE 79 U/L (46-116); ALT/SGPT 30 U/L (7.0-40); AST/SGOT 13 U/L (<34); BILIRUBIN,TOTAL 0.2 MG/DL (0.3-1.2); BLOOD UREA NITROGEN 13 MG/DL (9-23); CALCIUM LEVEL 8.8 MG/DL (8.5-10.1); CARBON DIOXIDE LEVEL 24 MMOL/L (20-31); CHLORIDE LEVEL 109 MMOL/L (98-107); GLOMERULAR FILTRATION RATE > 60.0 (>60); GLUCOSE, FASTING 92 MG/DL (60-100); SODIUM LEVEL 139 MMOL/L (136-145); TOTAL PROTEIN 6.7 G/DL (5.7-8.2)
== END 2024-02-28 17:25 | disposition home or self-care (01) ==
LOC: M INFU 16:40
PROVIDERS: ATTEND Internal Medicine Infectious Disease
DX: K65.1 Peritoneal abscess (principal)
CPT/HCPCS: 36592; 80053; 85025; 86140; 96365; G0463; J1335

== ENCOUNTER 2024-02-29 16:35 | Outpatient (CLI) | payer OTHER ==
[~2024-02-29] VITALS: Ht 152.4 cm; Wt 87.3 kg
[2024-02-29 16:35] VITALS: BP 118/63; O2SAT 99
[2024-02-29] MEDS: ERTAPENEM SODIUM 1 GM in NS MINI-BAG PLUS 50 ML IV SCH (16:54)
[2024-02-29 17:28] VITALS: BP 138/89; O2SAT 100
== END 2024-02-29 17:30 ==
LOC: M INFU 16:35
PROVIDERS: ATTEND Internal Medicine Infectious Disease
DX: K65.1 Peritoneal abscess (principal)
CPT/HCPCS: 96365; J1335

== ENCOUNTER 2024-03-01 16:50 | Outpatient (CLI) | payer OTHER ==
[2024-03-01] MEDS: ERTAPENEM SODIUM 1 GM in NS MINI-BAG PLUS 50 ML IV ONE (16:48)
[2024-03-01 17:25] VITALS: BP 143/86; O2SAT 100
== END 2024-03-01 17:25 ==
LOC: M INFU 16:50
PROVIDERS: ATTEND Internal Medicine Infectious Disease
DX: K65.1 Peritoneal abscess (principal)
CPT/HCPCS: 96365; J1335

== ENCOUNTER → 2024-03-08 | Outpatient (CLI) | payer OTHER ==
[~2024-03-08] MED LIST changes: +GASTROGRAFIN SOLUTION 30ML As Ordered ONE; +ISOVUE-370 76% 100ML VIAL As Ordered ONE
[2024-03-08 13:55] LABS: BASO # 0.1 10^3/uL (0.0-0.2); BASO % 0.5 % (0.0-1.0); EOS # 0.3 10^3/uL (0.0-0.5); EOS % 2.7 % (0.0-3.0); HEMATOCRIT 38.1 % (36.0-47.0); HEMOGLOBIN 12.1 g/dl (12.0-15.5); LYMPH # 3.4 10^3/uL (1.5-5.0); LYMPH % 30.9 % (24.0-44.0); MEAN CORPUSCULAR HEMOGLOBIN 27.1 pg (27.0-33.0); MEAN CORPUSCULAR HGB CONC 31.8 g/dl (32.0-36.5); MEAN CORPUSCULAR VOLUME 85.4 fl (80.0-96.0); MONO # 0.5 10^3/uL (0.0-0.8); MONO % 4.5 % (2.0-8.0); NEUTROPHILS # 6.6 10^3/uL (1.5-8.5); NEUTROPHILS % 61.1 % (36.0-66.0); PLATELET COUNT, AUTOMATED 366 10^3/uL (150-450); RED BLOOD COUNT 4.46 10^6/uL (4.00-5.40); WHITE BLOOD COUNT 10.9 10^3/uL (4.0-10.0)
== END ==
LOC: M PLAIMG 03-02 13:32 → M RAD 13:04
PROVIDERS: ATTEND Internal Medicine Infectious Disease
DX: K65.1 Peritoneal abscess (principal)
CPT/HCPCS: 74177; 85025; 86140; Q9963; Q9967

== ENCOUNTER → 2024-03-20 | Outpatient (CLI) | payer OTHER ==
[~2024-03-20] MED LIST changes: -GASTROGRAFIN SOLUTION 30ML As Ordered ONE; -ISOVUE-370 76% 100ML VIAL As Ordered ONE
[2024-03-20 10:52] LABS: BASO # 0.1 10^3/uL (0.0-0.2); BASO % 0.5 % (0.0-1.0); EOS # 0.3 10^3/uL (0.0-0.5); EOS % 3.2 % (0.0-3.0); HEMATOCRIT 39.5 % (36.0-47.0); HEMOGLOBIN 12.5 g/dl (12.0-15.5); LYMPH % 29.7 % (24.0-44.0); MEAN CORPUSCULAR HEMOGLOBIN 26.7 pg (27.0-33.0); MEAN CORPUSCULAR HGB CONC 31.6 g/dl (32.0-36.5); MEAN CORPUSCULAR VOLUME 84.2 fl (80.0-96.0); MONO # 0.5 10^3/uL (0.0-0.8); MONO % 4.9 % (2.0-8.0); NEUTROPHILS # 6.2 10^3/uL (1.5-8.5); NEUTROPHILS % 61.5 % (36.0-66.0); PLATELET COUNT, AUTOMATED 353 10^3/uL (150-450); RED BLOOD COUNT 4.69 10^6/uL (4.00-5.40); WHITE BLOOD COUNT 10.1 10^3/uL (4.0-10.0)
[2024-03-20 11:26] LABS: IRON (FE) 24 UG/DL (50-170)
[2024-03-20 11:27] LABS: ALBUMIN 3.3 G/DL (3.2-5.2); ALKALINE PHOSPHATASE 78 U/L (46-116); ALT/SGPT 24 U/L (7.0-40); AST/SGOT 12 U/L (<34); BILIRUBIN,TOTAL 0.2 MG/DL (0.3-1.2); BLOOD UREA NITROGEN 9 MG/DL (9-23); CALCIUM LEVEL 9.7 MG/DL (8.5-10.1); CARBON DIOXIDE LEVEL 26 MMOL/L (20-31); CHLORIDE LEVEL 107 MMOL/L (98-107); CREATININE FOR GFR 0.52 MG/DL (0.55-1.30); GLOMERULAR FILTRATION RATE > 60.0 (>60); GLUCOSE, FASTING 85 MG/DL (60-100); MAGNESIUM LEVEL 1.9 MG/DL (1.8-2.4); PERCENT SATURATION 7.7 % (13.2-45.0); POTASSIUM SERUM 4.6 MMOL/L (3.5-5.1); SODIUM LEVEL 139 MMOL/L (136-145); TOTAL IRON BINDING CAPACITY 312 UG/DL (250-425); TOTAL PROTEIN 6.7 G/DL (5.7-8.2)
== END ==
LOC: M LAB 09:18
PROVIDERS: ATTEND Internal Medicine Infectious Disease
DX: D72.829 Elevated white blood cell count, unspecified (principal); D50.0 Iron deficiency anemia secondary to blood loss (chronic); K65.1 Peritoneal abscess

== ENCOUNTER 2024-07-15 01:11 | Emergency (ER) | payer OTHER ==
[~2024-07-15] VITALS: Ht 152.4 cm; Wt 87.0 kg
[~2024-07-15 01:11] MED LIST changes: +FERR324T21 PO
[2024-07-15 01:51] LABS: BASO # 0.1 10^3/uL (0.0-0.2); BASO % 0.5 % (0.0-1.0); EOS # 0.4 10^3/uL (0.0-0.5); EOS % 3.2 % (0.0-3.0); HEMOGLOBIN 12.9 g/dl (12.0-15.5); LYMPH # 2.6 10^3/uL (1.5-5.0); LYMPH % 19.7 % (24.0-44.0); MEAN CORPUSCULAR HEMOGLOBIN 28.6 pg (27.0-33.0); MEAN CORPUSCULAR HGB CONC 32.3 g/dl (32.0-36.5); MEAN CORPUSCULAR VOLUME 88.7 fl (80.0-96.0); MONO # 0.9 10^3/uL (0.0-0.8); MONO % 6.6 % (2.0-8.0); NEUTROPHILS # 9.2 10^3/uL (1.5-8.5); NEUTROPHILS % 69.6 % (36.0-66.0); PLATELET COUNT, AUTOMATED 345 10^3/uL (150-450); RED BLOOD COUNT 4.51 10^6/uL (4.00-5.40); WHITE BLOOD COUNT 13.2 10^3/uL (4.0-10.0)
[2024-07-15 02:08] LABS: LIPASE 54 U/L (12-53)
[2024-07-15 02:10] LABS: ALBUMIN 3.5 G/DL (3.2-5.2); ALKALINE PHOSPHATASE 78 U/L (46-116); ALT/SGPT 61 U/L (7.0-40); AST/SGOT 77 U/L (<34); BILIRUBIN,DIRECT 0.2 MG/DL (<0.4); BILIRUBIN,TOTAL 0.4 MG/DL (0.3-1.2); BLOOD UREA NITROGEN 12 MG/DL (9-23); CALCIUM LEVEL 9.5 MG/DL (8.5-10.1); CARBON DIOXIDE LEVEL 27 MMOL/L (20-31); CHLORIDE LEVEL 108 MMOL/L (98-107); CK-MB VALUE MASS < 1.0 NG/ML (<3.6); CPK CREATINE PHOSPHOKINASE 58 U/L (34-145); CREATININE FOR GFR 0.61 MG/DL (0.55-1.30); GLOMERULAR FILTRATION RATE > 60.0 (>60); GLUCOSE, FASTING 101 MG/DL (60-100); MB/CK RELATIVE INDEX 1.72 (< OR =4); POTASSIUM SERUM 4.3 MMOL/L (3.5-5.1); SODIUM LEVEL 137 MMOL/L (136-145); TOTAL PROTEIN 6.8 G/DL (5.7-8.2)
[2024-07-15 06:30] LABS: CK-MB VALUE MASS < 1.0 NG/ML (<3.6)
[2024-07-15 06:31] LABS: CPK CREATINE PHOSPHOKINASE 43 U/L (34-145); MB/CK RELATIVE INDEX 2.32 (< OR =4)
[2024-07-15] MEDS ORDERED: ALBUTEROL SULFATE 2.5MG/0.5ML INH NEB SOLN NEB ONE (07:05)
[2024-07-15] MEDS: ACETAMINOPHEN TAB 650MG DOSE (2X325MG) PO ONE (07:05)
[2024-07-15 07:33] VITALS: TEMP 96.9
[2024-07-15] MEDS ORDERED: PROP10TA56 (07:35)
[2024-07-15] MEDS ORDERED: FERR32TA (07:35)
[2024-07-15] MEDS ORDERED: FURO20TA2 (07:35)
[2024-07-15] MEDS ORDERED: BUPR-71 (07:35)
[2024-07-15 08:19] VITALS: BP 132/79; O2SAT 99
== END 2024-07-15 08:23 | disposition home or self-care (01) ==
LOC: M ED 01:11
DX: R07.89 Other chest pain (principal); M54.50 Low back pain, unspecified; I10 Essential (primary) hypertension; D50.9 Iron deficiency anemia, unspecified; Z86.711 Personal history of pulmonary embolism; Z86.718 Personal history of other venous thrombosis and embolism; F17.200 Nicotine dependence, unspecified, uncomplicated; Z79.899 Other long term (current) drug therapy

== ENCOUNTER → 2024-08-07 | Outpatient (CLI) | payer OTHER ==
[~2024-08-07] MED LIST changes: +BUPR-71; +FERR32TA; +FURO20TA2; +PROP10TA56
[2024-08-07 19:22] LABS: BASO # 0.1 10^3/uL (0.0-0.2); BASO % 0.4 % (0.0-1.0); EOS # 0.4 10^3/uL (0.0-0.5); EOS % 3.3 % (0.0-3.0); HEMATOCRIT 41.5 % (36.0-47.0); HEMOGLOBIN 13.3 g/dl (12.0-15.5); LYMPH # 3.1 10^3/uL (1.5-5.0); LYMPH % 24.7 % (24.0-44.0); MEAN CORPUSCULAR VOLUME 90.6 fl (80.0-96.0); MONO # 0.5 10^3/uL (0.0-0.8); MONO % 4.1 % (2.0-8.0); NEUTROPHILS # 8.4 10^3/uL (1.5-8.5); PLATELET COUNT, AUTOMATED 358 10^3/uL (150-450); RED BLOOD COUNT 4.58 10^6/uL (4.00-5.40); WHITE BLOOD COUNT 12.6 10^3/uL (4.0-10.0)
[2024-08-07 19:31] LABS: ERYTHROCYTE SEDIMENTATION RATE 24 mm/hr (0-20)
[2024-08-07 19:52] LABS: ALBUMIN 3.6 G/DL (3.2-5.2); ALKALINE PHOSPHATASE 69 U/L (46-116); ALT/SGPT 22 U/L (7.0-40); AST/SGOT 9 U/L (<34); BILIRUBIN,TOTAL 0.2 MG/DL (0.3-1.2); BLOOD UREA NITROGEN 16 MG/DL (9-23); CALCIUM LEVEL 8.6 MG/DL (8.5-10.1); CARBON DIOXIDE LEVEL 30 MMOL/L (20-31); CHLORIDE LEVEL 108 MMOL/L (98-107); CREATININE FOR GFR 0.63 MG/DL (0.55-1.30); GLOMERULAR FILTRATION RATE > 60.0 (>60); GLUCOSE, FASTING 86 MG/DL (60-100); POTASSIUM SERUM 4.4 MMOL/L (3.5-5.1); SODIUM LEVEL 141 MMOL/L (136-145); TOTAL PROTEIN 6.6 G/DL (5.7-8.2)
[2024-08-07 19:59] LABS: HEPATITIS B SURFACE ANTIBODY NEGATIVE (POSITIVE)
[2024-08-07 20:11] LABS: HEPATITIS B SURFACE ANTIGEN NEGATIVE (NEGATIVE)
[2024-08-07 20:32] LABS: HEPATITIS C VIRUS ABY INDEX < 0.02 INDEX (<0.8)
== END ==
LOC: M LAB 17:20
PROVIDERS: ATTEND Internal Medicine Infectious Disease
DX: D72.829 Elevated white blood cell count, unspecified (principal); R74.01 Elevation of levels of liver transaminase levels

== ENCOUNTER → 2024-09-14 | Outpatient (CLI) | payer OTHER | LOC: M WHC 15:10 | PROVIDERS: ATTEND Obstetrics & Gynecology | DX: R19.04 Left lower quadrant abdominal swelling, mass and lump (principal); N83.201 Unspecified ovarian cyst, right side ==

== ENCOUNTER → 2024-10-11 | Outpatient (CLI) | payer OTHER ==
[~2024-10-11] MED LIST changes: +ISOVUE-370 76% 100ML VIAL As Ordered ONE
== END ==
LOC: M RAD 15:33
PROVIDERS: ATTEND Thoracic Surgery (Cardiothoracic Vascular Surgery)
DX: E32.0 Persistent hyperplasia of thymus (principal)
CPT/HCPCS: 71260; Q9967

== ENCOUNTER 2024-11-20 22:52 | Emergency (ER) | payer OTHER ==
[~2024-11-20] VITALS: Ht 152.4 cm; Wt 86.4 kg
[~2024-11-20 22:52] MED LIST changes: -ISOVUE-370 76% 100ML VIAL As Ordered ONE
[2024-11-20 23:00] VITALS: BP 110/60; TEMP 97.5; O2SAT 98
== END 2024-11-20 23:58 | disposition left against medical advice (07) ==
LOC: M ED 22:52
DX: Z53.21 Procedure and treatment not carried out due to patient leaving prior to being seen by health care provider (principal)

== ENCOUNTER → 2025-02-01 | Outpatient (CLI) | payer OTHER, SELFPAY | LOC: M PLARAD 14:01 | PROVIDERS: ATTEND Thoracic Surgery (Cardiothoracic Vascular Surgery) | DX: E32.0 Persistent hyperplasia of thymus (principal) ==

== ENCOUNTER → 2025-03-26 | Outpatient (CLI) | payer OTHER ==
[2025-03-26 07:47] LABS: HEMATOCRIT 39.3 % (36.0-47.0); HEMOGLOBIN 13.3 g/dl (12.0-15.5); MEAN CORPUSCULAR HEMOGLOBIN 30.2 pg (27.0-33.0); MEAN CORPUSCULAR HGB CONC 33.8 g/dl (32.0-36.5); MEAN CORPUSCULAR VOLUME 89.3 fl (80.0-96.0); PLATELET COUNT, AUTOMATED 298 10^3/uL (150-450); WHITE BLOOD COUNT 12.3 10^3/uL (4.0-10.0)
== END ==
LOC: M LAB 06:50
PROVIDERS: ATTEND Nurse Practitioner Family
DX: F43.0 Acute stress reaction (principal)

== ENCOUNTER → 2025-06-14 | Outpatient (CLI) | payer OTHER | LOC: M RAD 14:48 | PROVIDERS: ATTEND Internal Medicine | DX: E04.2 Nontoxic multinodular goiter (principal) ==

== ENCOUNTER 2025-10-25 17:22 | Emergency (ER) | payer OTHER ==
[~2025-10-25] VITALS: Ht 152.4 cm; Wt 96.1 kg
[~2025-10-25 17:22] MED LIST changes: -IBUP-1022 PO; +IBUP600T42 PO
[2025-10-25 17:24] VITALS: BP 133/84; TEMP 97; O2SAT 100
[2025-10-25 18:24] LABS: BASO # 0.1 10^3/uL (0.0-0.2); BASO % 0.6 % (0.0-1.0); EOS # 0.6 10^3/uL (0.0-0.5); EOS % 4.6 % (0.0-3.0); LYMPH # 3.5 10^3/uL (1.5-5.0); LYMPH % 28.4 % (24.0-44.0); MONO # 0.7 10^3/uL (0.0-0.8); MONO % 5.6 % (2.0-8.0); NEUTROPHILS # 7.5 10^3/uL (1.5-8.5); NEUTROPHILS % 60.5 % (36.0-66.0); PLATELET COUNT, AUTOMATED 352 10^3/uL (150-450)
[2025-10-25 18:33] LABS: KETONE, URINE AUTO RFX NEGATIVE (NEGATIVE); LEUKOCYTE ESTERASE UR AUTO RFX NEGATIVE (NEGATIVE); NITRITE, URINE AUTO RFX NEGATIVE (NEGATIVE); RBC, URINE AUTO RFX 0 /HPF (0-3); SQUAM EPITHELIAL CELL UR AURFX 18 /HPF (0-6); WBC, URINE AUTO RFX 1 /HPF (0-3)
[2025-10-25 18:53] LABS: CALCIUM LEVEL 8.8 MG/DL (8.5-10.1); CARBON DIOXIDE LEVEL 26 MMOL/L (20-31); CHLORIDE LEVEL 108 MMOL/L (98-107); CREATININE FOR GFR 0.54 MG/DL (0.55-1.30); GLOMERULAR FILTRATION RATE > 90.0 (>60); POTASSIUM SERUM 4.5 MMOL/L (3.5-5.1); SODIUM LEVEL 143 MMOL/L (136-145)
== END 2025-10-25 22:36 | disposition left against medical advice (07) ==
LOC: M ED 17:22
DX: Z53.21 Procedure and treatment not carried out due to patient leaving prior to being seen by health care provider (principal)